=== PATIENT | male | born 1955 | race Caucasian/White ===

== ENCOUNTER 2017-11-22 01:04 | Inpatient (IN) | payer MEDICARE, OTHER ==
[2017-11-22] MEDS ORDERED: HYDROmorphone 0.5 MG/0.5 ML SYRINGE IVP STA (02:14)
--- NOTE | 2017-11-22 02:45 | ED ---
Fall HPI - General Chief Complaint: Fall Stated Complaint: Leg Injury Time Seen by Provider: 11/22/17 01:07 Source: patient Mode of arrival: EMS - History of Present Illness Initial Comments: 62-year-old male patient presents to emergency department today as a transfer from [facility] for fracture to his tibia and fibula. Patient states that earlier today he became dizzy, tripped and fell injuring the leg. Patient states that he often has dizziness related to his blood pressure medication. States he does have a history of diabetes, hypertension, and cardiac stents. Patient denies hitting his head or losing consciousness during the fall. Denies any other injuries. States that he does take Plavix for the stents. He denies any numbness or tingling to the leg at this time. He is complaining of increased pain. Patient denies any headache, neck pain, back pain , chest pain, shortness of breath, dizziness, weakness, abdominal pain, nausea, vomiting, or difficulties with bowel movements or urination. Patient does have a delong catheter in place from [facility]. - Related Data Allergies Allergy/AdvReac Type Severity Reaction Status Date / Time shellfish derived [Shellfish] Allergy Nausea & Verified 11/22/17 01:19 Vomiting IV Dye Allergy Unknown Uncoded 11/22/17 01:19 Review of Systems ROS Statement: Those systems with pertinent positive or pertinent negative responses have been documented in the HPI. ROS Other: All systems not noted in ROS Statement are negative. Past Medical History Past Medical History: Diabetes Mellitus, Hyperlipidemia, Hypertension History of Any Multi-Drug Resistant Organisms: None Reported Past Surgical History: No Surgical Hx Reported Past Psychological History: Anxiety, Depression Smoking Status: Never smoker Past Alcohol Use History: None Reported Past Drug Use History: Marijuana General Exam Limitations: physical limitation General appearance: alert, in no apparent distress, other (Social well-developed , well-nourished adult male patient in no acute distress. Vital signs upon presentation are temperature 97.9F, pulse 62, respirations 18, blood pressure 121/58, pulse ox 95% on room air.) Eye exam: Present: normal appearance, PERRL, EOMI. Absent: scleral icterus, conjunctival injection, periorbital swelling ENT exam: Present: normal exam, normal oropharynx, mucous membranes moist Respiratory exam: Present: normal lung sounds bilaterally. Absent: respiratory distress, wheezes, rales, rhonchi, stridor Cardiovascular Exam: Present: regular rate, normal rhythm, normal heart sounds. Absent: systolic murmur, diastolic murmur, rubs, gallop, clicks GI/Abdominal exam: Present: soft, normal bowel sounds. Absent: distended, tenderness, guarding, rebound, rigid Extremities exam: Present: full ROM, normal capillary refill, other (Patient has a posterior OCL splint extending from mid thigh down to his toes. Toes are pink, warm, and dry. Cap refills less than 3 seconds. Pedal pulses are 2+ and equal bilaterally. Patient is able to move his toes.). Absent: normal inspection, tenderness, pedal edema, joint swelling, calf tenderness Back exam: Present: normal inspection. Absent: vertebral tenderness Neurological exam: Present: alert, oriented X3, CN II-XII intact Psychiatric exam: Present: normal affect, normal mood Skin exam: Present: warm, dry, intact, normal color. Absent: rash Course Vital Signs 11/22/17 11/22/17 11/22/17 01:12 02:20 04:03 Temperature 97.9 F 99.0 F Pulse Rate 62 62 64 Respiratory 18 18 18 Rate Blood Pressure 121/58 147/84 117/64 O2 Sat by Pulse 95 96 97 Oximetry 11/22/17 06:30 Temperature 98.8 F Pulse Rate 75 Respiratory 18 Rate Blood Pressure 150/68 O2 Sat by Pulse 96 Oximetry Medical Decision Making - Medical Decision Making 62-year-old male patient presented to the emergency department as a transfer from [facility] for a fracture to his distal tibia and proximal fibula. Images were reviewed. I did speak to Betty Cain catalyst concentration operator [facility], Dr. Osuna agrees to admission. Patient will be made nothing by mouth. Pain management will be provided. We will obtain baseline labs and presurgical workup. Patient does have an extensive medical history so we will consult sound for medical management. - Lab Data Result diagrams: 11/22/17 04:24 11/22/17 04:24 Lab Results 11/22/17 11/22/17 11/22/17 Range/Units 04:24 04:24 04:24 WBC 12.6 H (3.8-10.6) k/uL RBC 4.41 (4.30-5.90) m/uL Hgb 12.6 L (13.0-17.5) gm/dL Hct 37.5 L (39.0-53.0) % MCV 85.2 (80.0-100.0) fL MCH 28.7 (25.0-35.0) pg MCHC 33.7 (31.0-37.0) g/dL RDW 14.1 (11.5-15.5) % Plt Count 290 (150-450) k/uL Neutrophils % 76 % Lymphocytes % 14 % Monocytes % 7 % Eosinophils % 2 % Basophils % 0 % Neutrophils # 9.6 H (1.3-7.7) k/uL Lymphocytes # 1.8 (1.0-4.8) k/uL Monocytes # 0.8 (0-1.0) k/uL Eosinophils # 0.3 (0-0.7) k/uL Basophils # 0.0 (0-0.2) k/uL PT 11.5 (9.0-12.0) sec INR 1.2 H (<1.2) APTT 24.9 (22.0-30.0) sec Sodium 137 (137-145) mmol/L Potassium 4.0 (3.5-5.1) mmol/L Chloride 102 (98-107) mmol/L Carbon Dioxide 24 (22-30) mmol/L Anion Gap 11 mmol/L BUN 25 H (9-20) mg/dL Creatinine 1.00 (0.66-1.25) mg/dL Est GFR (CKD-EPI)AfAm >90 (>60 ml/min/1.73 sqM) Est GFR (CKD-EPI)NonAf 79 (>60 ml/min/1.73 sqM) Glucose 115 H (74-99) mg/dL Calcium 8.9 (8.4-10.2) mg/dL Total Bilirubin 0.6 (0.2-1.3) mg/dL AST 23 (17-59) U/L ALT 42 (21-72) U/L Alkaline Phosphatase 54 (38-126) U/L Total Protein 6.2 L (6.3-8.2) g/dL Albumin 3.8 (3.5-5.0) g/dL Urine Color Urine Appearance (Clear) Urine pH (5.0-8.0) Ur Specific Hayes (1.001-1.035) Urine Protein (Negative) Urine Glucose (UA) (Negative) Urine Ketones (Negative) Urine Blood (Negative) Urine Nitrite (Negative) Urine Bilirubin (Negative) Urine Urobilinogen (<2.0) mg/dL Ur Leukocyte Esterase (Negative) Urine RBC (0-5) /hpf Urine WBC (0-5) /hpf Ur Squamous Epith Cells (0-4) /hpf Urine Mucus (None) /hpf 11/22/17 Range/Units 04:25 WBC (3.8-10.6) k/uL RBC (4.30-5.90) m/uL Hgb (13.0-17.5) gm/dL Hct (39.0-53.0) % MCV (80.0-100.0) fL MCH (25.0-35.0) pg MCHC (31.0-37.0) g/dL RDW (11.5-15.5) % Plt Count (150-450) k/uL Neutrophils % % Lymphocytes % % Monocytes % % Eosinophils % % Basophils % % Neutrophils # (1.3-7.7) k/uL Lymphocytes # (1.0-4.8) k/uL Monocytes # (0-1.0) k/uL Eosinophils # (0-0.7) k/uL Basophils # (0-0.2) k/uL PT (9.0-12.0) sec INR (<1.2) APTT (22.0-30.0) sec Sodium (137-145) mmol/L Potassium (3.5-5.1) mmol/L Chloride (98-107) mmol/L Carbon Dioxide (22-30) mmol/L Anion Gap mmol/L BUN (9-20) mg/dL Creatinine (0.66-1.25) mg/dL Est GFR (CKD-EPI)AfAm (>60 ml/min/1.73 sqM) Est GFR (CKD-EPI)NonAf (>60 ml/min/1.73 sqM) Glucose (74-99) mg/dL Calcium (8.4-10.2) mg/dL Total Bilirubin (0.2-1.3) mg/dL AST (17-59) U/L ALT (21-72) U/L Alkaline Phosphatase (38-126) U/L Total Protein (6.3-8.2) g/dL Albumin (3.5-5.0) g/dL Urine Color Light Yellow Urine Appearance Clear (Clear) Urine pH 5.5 (5.0-8.0) Ur Specific Hayes 1.012 (1.001-1.035) Urine Protein Trace H (Negative) Urine Glucose (UA) Negative (Negative) Urine Ketones Negative (Negative) Urine Blood Moderate H (Negative) Urine Nitrite Negative (Negative) Urine Bilirubin Negative (Negative) Urine Urobilinogen <2.0 (<2.0) mg/dL Ur Leukocyte Esterase Trace H (Negative) Urine RBC >182 H (0-5) /hpf Urine WBC 10 H (0-5) /hpf Ur Squamous Epith Cells <1 (0-4) /hpf Urine Mucus Rare H (None) /hpf Disposition Clinical Impression: Tibia/fibula fracture Disposition: ADMITTED IP TO THIS [facility] Condition: Serious Decision to Admit Reason: Admit from EC Decision Date: 11/22/17 Decision Time: 04:04
[2017-11-22] MEDS ORDERED: MORPHINE SULFATE 2 MG/ML SYRINGE IV PRN (04:01)
[2017-11-22] MEDS ORDERED: NALOXONE 0.4 MG/ML 1 ML VIAL IV PRN (04:01)
[2017-11-22] MEDS ORDERED: ONDANSETRON 4 MG/2 ML VIAL IVP PRN (04:01)
[2017-11-22 04:41] LABS: Basophils % (A) 0 %; Eosinophils # (A) 0.3 k/uL (0-0.7); Eosinophils % (A) 2 %; HCT 37.5 % (39.0-53.0); HGB 12.6 gm/dL (13.0-17.5); Lymphocytes # (A) 1.8 k/uL (1.0-4.8); Lymphocytes % (A) 14 %; MCH 28.7 pg (25.0-35.0); MCHC 33.7 g/dL (31.0-37.0); MCV 85.2 fL (80.0-100.0); Mean Platelet Volume 6.6; Monocytes # (A) 0.8 k/uL (0-1.0); Monocytes % (A) 7 %; Neutrophils # (A) 9.6 k/uL (1.3-7.7); Neutrophils % (A) 76 %; Platelet Count 290 k/uL (150-450); RBC 4.41 m/uL (4.30-5.90); RDW 14.1 % (11.5-15.5); WBC 12.6 k/uL (3.8-10.6)
[2017-11-22 04:52] LABS: Appearance,Urine Clear (Clear); Bilirubin,Urine Negative (Negative); Blood,Urine Moderate (Negative); Color,Urine Light Yellow; Glucose,Urine (UA) Negative (Negative); Ketones,Urine Negative (Negative); Leukocyte Esterase,Urine Trace (Negative); Mucus,Urine Rare /hpf; Nitrite,Urine Negative (Negative); PH, Urine 5.5 (5.0-8.0); Protein,Urine Trace (Negative); RBC,Urine >182 /hpf (0-5); Specific Gravity,Urine 1.012 (1.001-1.035); Squamous Epithelial Cell,Urine <1 /hpf (0-4); Urobilinogen,Urine <2.0 mg/dL (<2.0); WBC,Urine 10 /hpf (0-5)
[2017-11-22 04:57] LABS: INR 1.2 (<1.2); Partial Thromboplastin Time 24.9 sec (22.0-30.0); Prothrombin Time 11.5 sec (9.0-12.0)
[2017-11-22 05:01] LABS: ALT 42 U/L (21-72); AST 23 U/L (17-59); Albumin 3.8 g/dL (3.5-5.0); Alkaline Phosphatase 54 U/L (38-126); Anion Gap 11 mmol/L; Blood Urea Nitrogen 25 mg/dL (9-20); Calcium 8.9 mg/dL (8.4-10.2); Carbon Dioxide 24 mmol/L (22-30); Chloride 102 mmol/L (98-107); Glucose 115 mg/dL (74-99); Sodium 137 mmol/L (137-145); Total Bilirubin 0.6 mg/dL (0.2-1.3); Total Protein 6.2 g/dL (6.3-8.2)
[2017-11-22] MEDS: SODIUM CHLORIDE 0.9% 1,000 ML IV SCH (05:31)
[2017-11-22 07:16] LABS: Glucose,Whole Blood 128 mg/dL (75-99)
--- NOTE | 2017-11-22 08:48 | P.CONS ---
History of Present Illness - Reason for Consult Consult date: 11/22/17 diabetes management Requesting physician: Kenneth Osuna - Chief Complaint Right leg pain - History of Present Illness Patient is 62 yo CM with a history of HTN, DM 2 requiring insulin, HTN. HLD, CAD status post PCI with 3 stent, and chronic dizziness who presented as a transfer from [facility] left wrist sustaining a right tib-fib fracture. We have been asked to consult for diabetic management and preoperative clearance. Patient seen and examined at bedside. He states that he was up and walking the last evening and he did not have his cane with him got dizzy his dog within the way and he fell. He then was unable to get off the floor until his came to his his side and health. He then proceeded to the hospital secondary to inability to weight-bear on his right lower extremity and significant pain. At [facility] she underwent an extensive evaluation and they found a right tibial fibular fracture and transferred him to our facility for further care. He states that he has suffered from dizziness for the last 1 year due to his cardiac medications. He has been following with the PA from his PCPs office and medications have been adjusted. He denies any recent cough, cold, fever, or flu. He had one day of diarrhea earlier this week that has since subsided. He denies any recent chest pain, unusual shortness of breath, or palpitations. He denies a syncopal event. He has otherwise been in his normal state of health and has not required any recent medication changes. He does take insulin for his diabetes. His is his court-appointed guardian. He states this occurred after he fell down a flight of stairs 2 years ago and was slightly confused. He is well aware of his medical history Case discussed with . She states that he has been having episodes of choking when eating is getting treated for severe GERD. They've not yet completed workup for this as an outpatient. She also states that he has depression and that what sounds like anxiety. Review of Systems Pertinent positives and negatives as discussed in HPI, a complete review of systems was performed and all other systems are negative. Past Medical History Past Medical History: Coronary Artery Disease (CAD), Diabetes Mellitus, Hyperlipidemia, Hypertension Additional Past Medical History / Comment(s): Depression, history of alcoholism , hx of brain bleed History of Any Multi-Drug Resistant Organisms: None Reported Past Surgical History: No Surgical Hx Reported Additional Past Surgical History / Comment(s): Fracture repairs after a fall, with long-term care; hydrocele surgery Past Anesthesia/Blood Transfusion Reactions: No Reported Reaction Past Psychological History: Anxiety, Depression Smoking Status: Never smoker Past Alcohol Use History: None Reported Past Drug Use History: Marijuana - Past Family History Father Family Medical History: Congestive Heart Failure (CHF), Diabetes Mellitus Mother Family Medical History: Congestive Heart Failure (CHF) Sister(s) Family Medical History: Diabetes Mellitus Medications and Allergies Allergies Allergy/AdvReac Type Severity Reaction Status Date / Time shellfish derived [Shellfish] Allergy Nausea & Verified 11/22/17 01:19 Vomiting IV Dye Allergy Unknown Uncoded 11/22/17 01:19 Physical Exam Osteopathic Statement: *. No significant issues noted on an osteopathic structural exam other than those noted in the History and Physical/Consult. Vitals: Vital Signs Temp Pulse Pulse Resp BP BP Pulse Ox 11/22/17 07:37 97.1 F L 64 18 137/73 95 11/22/17 06:30 98.8 F 75 18 150/68 96 11/22/17 04:03 64 18 117/64 97 11/22/17 02:20 99.0 F 62 18 147/84 96 11/22/17 01:12 97.9 F 62 18 121/58 95 Intake and Output 11/21/17 11/22/17 11/22/17 22:59 06:59 14:59 Output Total 1150 Balance -1150 Output: Urine 1150 Other: Weight 94.801 kg General: non toxic, no distress, appears at stated age, normal weight Derm: no unusual rashes/lesions no unusual ecchymoses, warm, dry, right leg in ACEI wrap Head: atraumatic, normocephalic, symmetric Eyes: EOMI, no lid lag, anicteric sclera, pupils equal round reactive to light ENT: Nose and ears atraumatic, no thrush, no pharyngeal erythema Neck: No thyromegaly, no cervical lymphadenopathy, trachea midline, supple Mouth: no lip lesion, mucus membranes moist Cardiovascular: S1S2 reg, no murmur, positive posterior tibial pulse bilateral, no edema, capillary refill less than 2 seconds Lungs: CTA bilateral, no rhonchi, no rales , no accessory muscle use Abdominal: soft, nontender to palpation, no guarding, no appreciable organomegaly, normal bowel sounds Ext: no gross muscle atrophy, muscle strength 5 out of 5 in upper extremities grossly, no contractures, Neuro: CN II-XI grossly intact, light touch intact all 4 extremities, difficulty with finger to nose on left, Psych: Alert, oriented, anxious Results CBC & Chem 7: 11/22/17 04:24 11/22/17 04:24 Labs: Abnormal Lab Results - Last 24 Hours (Table) 11/22/17 11/22/17 11/22/17 Range/Units 04:24 04:24 04:24 WBC 12.6 H (3.8-10.6) k/uL Hgb 12.6 L (13.0-17.5) gm/dL Hct 37.5 L (39.0-53.0) % Neutrophils # 9.6 H (1.3-7.7) k/uL INR 1.2 H (<1.2) BUN 25 H (9-20) mg/dL Glucose 115 H (74-99) mg/dL POC Glucose (mg/dL) (75-99) mg/dL Total Protein 6.2 L (6.3-8.2) g/dL Urine Protein (Negative) Urine Blood (Negative) Ur Leukocyte Esterase (Negative) Urine RBC (0-5) /hpf Urine WBC (0-5) /hpf Urine Mucus (None) /hpf 11/22/17 11/22/17 Range/Units 04:25 07:12 WBC (3.8-10.6) k/uL Hgb (13.0-17.5) gm/dL Hct (39.0-53.0) % Neutrophils # (1.3-7.7) k/uL INR (<1.2) BUN (9-20) mg/dL Glucose (74-99) mg/dL POC Glucose (mg/dL) 128 H (75-99) mg/dL Total Protein (6.3-8.2) g/dL Urine Protein Trace H (Negative) Urine Blood Moderate H (Negative) Ur Leukocyte Esterase Trace H (Negative) Urine RBC >182 H (0-5) /hpf Urine WBC 10 H (0-5) /hpf Urine Mucus Rare H (None) /hpf Comments: EKG is reviewed by myself revealed normal sinus rhythm at a rate of 66, normal access, MN 154, QRS 102, QTC [address]-T wave changes Assessment and Plan Assessment: Right leg fracture -Management as per orthopedics -Pain control -DVT prophylaxis per orthopedic surgery -PT/OT eval -Nonweightbearing at this point in time Diabetes mellitus type 2, insulin requiring -Resume home Lantus and NovoLog dosing -Check hemoglobin A1c -Follow blood sugars Hypertension -Resume home medications -Follow blood pressures -Nursing will into her home med list today GERD with recent difficulty swallowing -Changed to modify diet -PT consultation -PPI Dyslipidemia -Not chronically on any medications will not start this point in time Coronary artery disease status post PCI 3 - hold aspirin and Plavix pending orthopedic evaluation -Continue outpatient follow-up -Continue with JOSE C inhibitor and beta maru Functional debility -Fall precautions -Likely will need rehab on discharge Court-appointed guardian: breath DVT prophylaxis: per ortho Discussed with: Patient, nursing, over phone Anticipated discharge: undetermined Anticipated discharge place: SNF A total of [65] minutes was spent on the care of this complex patient more than 50% of the time was spent in counseling and care coordination.
[2017-11-22] MEDS: HYDROcodone/APAP 7.5-325MG 1 EACH TAB PO PRN ×3 (09:52→19:52)
[2017-11-22] MEDS: PANTOPRAZOLE 40 MG TABLET PO SCH (10:21)
--- NOTE | 2017-11-22 12:17 | P.HPOR ---
History of Present Illness H&P Date: 11/22/17 This is a 62-year-old male who is admitted for right tibia and fibula fracture. Patient states that yesterday he got up from sitting and felt dizzy and fell. Patient states that he did not lose consciousness or hit his head. Patient states that dizziness is common for him when standing. Patient was transferred from [facility] to [facility] emergency room for further evaluation and was admitted as an inpatient. Patient's past medical history significant for diabetes and hypertension. Patient denies any fever/chills, numbness, weakness, tingling, shortness of breath or chest pain. Review of Systems See HPI. Past Medical History Past Medical History: Diabetes Mellitus, Hyperlipidemia, Hypertension History of Any Multi-Drug Resistant Organisms: None Reported Past Surgical History: No Surgical Hx Reported Additional Past Surgical History / Comment(s): Fracture repairs after a fall, with long-term care; hydrocele surgery Past Anesthesia/Blood Transfusion Reactions: No Reported Reaction Past Psychological History: Anxiety, Depression Smoking Status: Never smoker Past Alcohol Use History: None Reported Past Drug Use History: Marijuana - Past Family History Father Family Medical History: Congestive Heart Failure (CHF), Diabetes Mellitus Mother Family Medical History: Congestive Heart Failure (CHF) Sister(s) Family Medical History: Diabetes Mellitus Medications and Allergies Home Medications Medication Instructions Recorded Confirmed Type Aspirin EC [Ecotrin Low Dose] 81 mg PO DAILY 11/22/17 11/22/17 History Atorvastatin [Lipitor] 20 mg PO HS 11/22/17 11/22/17 History Clopidogrel [Plavix] 75 mg PO DAILY 11/22/17 11/22/17 History DULoxetine HCL [Cymbalta] 60 mg PO DAILY 11/22/17 11/22/17 History Gabapentin [Neurontin] 300 mg PO BID@0800,1200 11/22/17 11/22/17 History Gabapentin [Neurontin] 600 mg PO HS 11/22/17 11/22/17 History Hydrochlorothiazide [Hydrodiuril] 25 mg PO DAILY 11/22/17 11/22/17 History Insulin Aspart [NovoLOG 6 unit SQ ACHS 11/22/17 11/22/17 History (formulary)] Insulin Glargine [Lantus] 20 - 25 unit SQ HS 11/22/17 11/22/17 History LORazepam [Ativan] 0.5 mg PO HS 11/22/17 11/22/17 History Lisinopril [Zestril] 20 mg PO DAILY 11/22/17 11/22/17 History Loratadine [Claritin] 10 mg PO DAILY 11/22/17 11/22/17 History Metoprolol Succinate [Toprol Xl] 50 mg PO DAILY 11/22/17 11/22/17 History Ranitidine HCl [Zantac] 150 mg PO BID 11/22/17 11/22/17 History amLODIPine [Norvasc] 10 mg PO DAILY 11/22/17 11/22/17 History metFORMIN HCL [metFORMIN HCL ER] 1,000 mg PO [id number] 11/22/17 11/22/17 History Allergies Allergy/AdvReac Type Severity Reaction Status Date / Time shellfish derived [Shellfish] Allergy Nausea & Verified 11/22/17 11:30 Vomiting IV Dye Allergy Unknown Uncoded 11/22/17 01:19 Physical Examination On exam patient is alert and oriented 3. Patient is lying in bed comfortably in no acute distress. Head is normocephalic and atraumatic. Exams of the neck , bilateral upper extremities and left lower extremity are within normal limits. The right lower extremity with long leg splint intact. Skin is intact. Patient has full range of motion of the toes of the right foot. Sensation intact. Capillary refill is normal at less than 2 seconds. Dorsalis pedis pulses 2+. Neurovascular status and circulatory status are intact. Results X-rays of the right ankle show a displaced spiral fracture of the tibia. X-rays of the right knee show a minimally displaced fracture of the proximal fibula. - Labs Labs: Abnormal Lab Results - Last 24 Hours (Table) 11/22/17 11/22/17 11/22/17 Range/Units 04:24 04:24 04:24 WBC 12.6 H (3.8-10.6) k/uL Hgb 12.6 L (13.0-17.5) gm/dL Hct 37.5 L (39.0-53.0) % Neutrophils # 9.6 H (1.3-7.7) k/uL INR 1.2 H (<1.2) BUN 25 H (9-20) mg/dL Glucose 115 H (74-99) mg/dL POC Glucose (mg/dL) (75-99) mg/dL Total Protein 6.2 L (6.3-8.2) g/dL Urine Protein (Negative) Urine Blood (Negative) Ur Leukocyte Esterase (Negative) Urine RBC (0-5) /hpf Urine WBC (0-5) /hpf Urine Mucus (None) /hpf 11/22/17 11/22/17 Range/Units 04:25 07:12 WBC (3.8-10.6) k/uL Hgb (13.0-17.5) gm/dL Hct (39.0-53.0) % Neutrophils # (1.3-7.7) k/uL INR (<1.2) BUN (9-20) mg/dL Glucose (74-99) mg/dL POC Glucose (mg/dL) 128 H (75-99) mg/dL Total Protein (6.3-8.2) g/dL Urine Protein Trace H (Negative) Urine Blood Moderate H (Negative) Ur Leukocyte Esterase Trace H (Negative) Urine RBC >182 H (0-5) /hpf Urine WBC 10 H (0-5) /hpf Urine Mucus Rare H (None) /hpf H & H 11/22/17 Range/Units 04:24 Hgb 12.6 L (13.0-17.5) gm/dL Hct 37.5 L (39.0-53.0) % Coagulation 11/22/17 Range/Units 04:24 INR 1.2 H (<1.2) Result Diagrams: 11/22/17 04:24 11/22/17 04:24 Assessment and Plan (1) Closed fracture of tibia and fibula Current Visit: Yes Status: Acute Code(s): S82.209A - UNSP FRACTURE OF SHAFT OF UNSP TIBIA, INIT FOR CLOS FX; S82.409A - UNSP FRACTURE OF SHAFT OF UNSP FIBULA, INIT FOR CLOS FX SNOMED Code(s): 213996076 (2) Fall Current Visit: Yes Status: Acute Code(s): W19.XXXA - UNSPECIFIED FALL, INITIAL ENCOUNTER SNOMED Code(s): 7731822 (3) Tibia/fibula fracture Current Visit: Yes Status: Acute Code(s): S82.209A - UNSP FRACTURE OF SHAFT OF UNSP TIBIA, INIT FOR CLOS FX; S82.409A - UNSP FRACTURE OF SHAFT OF UNSP FIBULA, INIT FOR CLOS FX SNOMED Code(s): 210814130 Plan: 1. Continue long leg splint, rest, ice and elevation. 2. Hold Plavix. 3. Appreciate input from medicine and cardiology. 4. NPO after midnight. 5. Intramedullary nail of tibia planned for 11/23/2017 if cleared medically. Consent pending.
[2017-11-22 12:56] LABS: Glucose,Whole Blood 153 mg/dL (75-99)
[2017-11-22] MEDS: INSULIN ASPART 100 UNIT/ML 1 ML 10 ML VIAL SQ SCH ×5 (13:01→21:13)
[2017-11-22] MEDS: HYDROmorphone 0.5 MG/0.5 ML SYRINGE IVP PRN ×2 (13:02→21:15)
[2017-11-22 15:30] LABS: Appearance,Urine Clear (Clear); Bilirubin,Urine Negative (Negative); Blood,Urine Trace (Negative); Color,Urine Light Yellow; Glucose,Urine (UA) Negative (Negative); Ketones,Urine Negative (Negative); Leukocyte Esterase,Urine Moderate (Negative); Mucus,Urine Rare /hpf; Nitrite,Urine Negative (Negative); Protein,Urine Negative (Negative); RBC,Urine 3 /hpf (0-5); Specific Gravity,Urine 1.011 (1.001-1.035); Squamous Epithelial Cell,Urine <1 /hpf (0-4); Urobilinogen,Urine <2.0 mg/dL (<2.0); WBC,Urine 3 /hpf (0-5)
[2017-11-22 17:38] LABS: Glucose,Whole Blood 118 mg/dL (75-99)
--- NOTE | 2017-11-22 19:52 | P.CRDCN ---
History of Present Illness Consult date: 11/22/17 Chief complaint: Right leg discomfort History of present illness: This is a pleasant 62-year-old gentleman from [facility] with a past medical history significant for coronary artery disease and prior coronary artery stenting of multiple vessels with unknown details at this point but according to the patient the last the stent was performed more than 3 years ago , he doesn't follow with a telemetry nurse out of the area, diabetes, hypertension , and dyslipidemia, was transferred from [facility] into [facility] because of right tibia and fibula. Fracture. The patient was in his usual state of health where he was trying to stand up from sitting and he suddenly felt dizzy and fell and fractured his right tibia and fibula. He did not lose his consciousness. He does not recall having any chest pain or chest discomfort. He stated that he has been feeling dizzy for the last year and he doctor his doctor regarding adjusting his blood pressure medications. The EKG showed sinus rhythm without any ischemic changes. The patient continues to be hemodynamically stable and continues to be asymptomatic from the cardiac vascular standpoint overview. Since the last the stent was performed more than 3 years ago I am going to DC the Plavix. The patient can proceed with the surgery. We will continue monitor the blood pressure and adjust her medications if the blood pressure is on the low side which could be causing the patient to be dizzy and lightheaded. Past Medical History Past Medical History: Diabetes Mellitus, Hyperlipidemia, Hypertension Additional Past Medical History / Comment(s): Depression, history of alcoholism , hx of brain bleed History of Any Multi-Drug Resistant Organisms: None Reported Past Surgical History: No Surgical Hx Reported Additional Past Surgical History / Comment(s): Fracture repairs after a fall, with long-term care; hydrocele surgery Past Anesthesia/Blood Transfusion Reactions: No Reported Reaction Past Psychological History: Anxiety, Depression Smoking Status: Never smoker Past Alcohol Use History: None Reported Past Drug Use History: Marijuana - Past Family History Father Family Medical History: Congestive Heart Failure (CHF), Diabetes Mellitus Mother Family Medical History: Congestive Heart Failure (CHF) Sister(s) Family Medical History: Diabetes Mellitus Medications and Allergies Home Medications Medication Instructions Recorded Confirmed Type Aspirin EC [Ecotrin Low Dose] 81 mg PO DAILY 11/22/17 11/22/17 History Atorvastatin [Lipitor] 20 mg PO HS 11/22/17 11/22/17 History Clopidogrel [Plavix] 75 mg PO DAILY 11/22/17 11/22/17 History DULoxetine HCL [Cymbalta] 60 mg PO DAILY 11/22/17 11/22/17 History Gabapentin [Neurontin] 300 mg PO BID@0800,1200 11/22/17 11/22/17 History Gabapentin [Neurontin] 600 mg PO HS 11/22/17 11/22/17 History Hydrochlorothiazide [Hydrodiuril] 25 mg PO DAILY 11/22/17 11/22/17 History Insulin Aspart [NovoLOG 6 unit SQ [facility] 11/22/17 11/22/17 History (formulary)] Insulin Glargine [Lantus] 20 - 25 unit SQ HS 11/22/17 11/22/17 History LORazepam [Ativan] 0.5 mg PO HS 11/22/17 11/22/17 History Lisinopril [Zestril] 20 mg PO DAILY 11/22/17 11/22/17 History Loratadine [Claritin] 10 mg PO DAILY 11/22/17 11/22/17 History Metoprolol Succinate [Toprol Xl] 50 mg PO DAILY 11/22/17 11/22/17 History Ranitidine HCl [Zantac] 150 mg PO BID 11/22/17 11/22/17 History amLODIPine [Norvasc] 10 mg PO DAILY 11/22/17 11/22/17 History metFORMIN HCL [metFORMIN HCL ER] 1,000 mg PO AC-BRKFST 11/22/17 11/22/17 History Allergies Allergy/AdvReac Type Severity Reaction Status Date / Time shellfish derived [Shellfish] Allergy Nausea & Verified 11/22/17 11:30 Vomiting IV Dye Allergy Unknown Uncoded 11/22/17 01:19 Physical Exam Vitals: Vital Signs Temp Pulse Pulse Resp BP BP BP 11/22/17 15:10 98.3 F 73 18 134/74 11/22/17 07:37 97.1 F L 64 18 137/73 11/22/17 06:30 98.8 F 75 18 150/68 11/22/17 04:03 64 18 117/64 11/22/17 02:20 99.0 F 62 18 147/84 11/22/17 01:12 97.9 F 62 18 121/58 Pulse Ox 11/22/17 15:10 93 L 11/22/17 07:37 95 11/22/17 06:30 96 11/22/17 04:03 97 11/22/17 02:20 96 11/22/17 01:12 95 Intake and Output 11/22/17 11/22/17 11/22/17 06:59 14:59 22:59 Intake Total 240 Output Total 1150 1000 225 Balance -1150 -760 -225 Intake: Oral 240 Output: Urine 1150 1000 225 Other: Voiding Method Indwelling Catheter Indwelling Catheter # Bowel Movements 0 0 Weight 94.801 kg - Constitutional General appearance: no acute distress - Respiratory Respiratory: bilateral: CTA - Cardiovascular Rhythm: regular Heart sounds: normal: S1, S2 Results 11/22/17 04:24 11/22/17 04:24 Cardiac Enzymes 11/22/17 Range/Units 04:24 AST 23 (17-59) U/L Coagulation 11/22/17 Range/Units 04:24 PT 11.5 (9.0-12.0) sec APTT 24.9 (22.0-30.0) sec CBC 11/22/17 Range/Units 04:24 WBC 12.6 H (3.8-10.6) k/uL RBC 4.41 (4.30-5.90) m/uL Hgb 12.6 L (13.0-17.5) gm/dL Hct 37.5 L (39.0-53.0) % Plt Count 290 (150-450) k/uL Comprehensive Metabolic Panel 11/22/17 Range/Units 04:24 Sodium 137 (137-145) mmol/L Potassium 4.0 (3.5-5.1) mmol/L Chloride 102 (98-107) mmol/L Carbon Dioxide 24 (22-30) mmol/L BUN 25 H (9-20) mg/dL Creatinine 1.00 (0.66-1.25) mg/dL Glucose 115 H (74-99) mg/dL Calcium 8.9 (8.4-10.2) mg/dL AST 23 (17-59) U/L ALT 42 (21-72) U/L Alkaline Phosphatase 54 (38-126) U/L Total Protein 6.2 L (6.3-8.2) g/dL Albumin 3.8 (3.5-5.0) g/dL Current Medications Generic Name Dose Route Start Last Admin Trade Name Freq PRN Reason Stop Dose Admin Hydrocodone Bitart/Acetaminophen 1 each 11/22/17 08:52 11/22/17 15:34 [place] 7.5-325 PO 1 each Q4HR PRN Administration MODERATE Pain Amlodipine Besylate 10 mg 11/23/17 09:00 Norvasc PO DAILY [facility] Atorvastatin Calcium 20 mg 11/22/17 21:00 Lipitor PO HS [facility] Duloxetine HCl 60 mg 11/23/17 09:00 Cymbalta PO DAILY [facility] Gabapentin 300 mg 11/23/17 08:00 Neurontin PO BID@0800,1200 [facility] Gabapentin 600 mg 11/22/17 21:00 Neurontin PO HS [facility] Hydrochlorothiazide 25 mg 11/23/17 09:00 Hydrodiuril PO DAILY [facility] Hydromorphone HCl 0.5 mg 11/22/17 08:48 11/22/17 13:02 Dilaudid IVP 0.5 mg Q3HR PRN Administration SEVERE Pain Sodium Chloride 1,000 mls @ 50 mls/hr 11/22/17 04:15 11/22/17 05:31 Saline 0.9% IV 50 mls/hr .Q20H [facility] Administration Insulin Aspart 0 unit 11/22/17 12:30 11/22/17 17:44 Novolog SQ Not Given ACHS [facility] Protocol Insulin Aspart 6 unit 11/22/17 12:30 11/22/17 18:02 Novolog SQ Not Given AC-TID [facility] Insulin Detemir 10 unit 11/22/17 21:00 Levemir SQ HS [facility] Lisinopril 20 mg 11/23/17 09:00 Zestril PO DAILY [facility] Loratadine 10 mg 11/23/17 09:00 Claritin PO DAILY [facility] Lorazepam 0.5 mg 11/22/17 21:00 Ativan PO HS [facility] Metoprolol Succinate 50 mg 11/23/17 09:00 Toprol Xl PO DAILY [facility] Naloxone HCl 0.2 mg 11/22/17 04:01 Narcan IV Q2M PRN Opioid Reversal Ondansetron HCl 4 mg 11/22/17 04:01 Zofran IVP Q8HR PRN Nausea And Vomiting Pantoprazole Sodium 40 mg 11/22/17 09:00 11/22/17 10:21 Protonix PO 40 mg AC-BRKFST ELLA Administration Intake and Output 11/22/17 11/22/17 11/22/17 06:59 14:59 22:59 Intake Total 240 Output Total 1150 1000 225 Balance -1150 -760 -225 Intake: Oral 240 Output: Urine 1150 1000 225 Other: Voiding Method Indwelling Catheter Indwelling Catheter # Bowel Movements 0 0 Weight 94.801 kg 11/22/17 04:24 11/22/17 04:24 Assessment and Plan Assessment: Assessment #1 status post fall and right TB/P. Fracture #2 coronary artery disease and status post multivessel coronary artery angioplasty #3 multiple risk factors including diabetes, hypertension, dyslipidemia Plan #1 since the last the stent was performed more than a year ago I am going to DC the Plavix #2 obtain an echocardiogram was Doppler #3 from the cardiovascular standpoint overview, the patient Proceed with the surgery. #4 monitor the blood pressure and adjust her medication if the pressure is on the low side #5 follow-up with the patient. Thank you for allowing us participate in his care
[2017-11-22 20:57] LABS: Glucose,Whole Blood 135 mg/dL (75-99)
[2017-11-22] MEDS: GABAPENTIN 300 MG CAP PO SCH (21:12)
[2017-11-22] MEDS: ATORVASTATIN 20 MG TAB PO SCH (21:12)
[2017-11-22] MEDS: LORazepam 0.5 MG TAB PO SCH (21:13)
[2017-11-22] MEDS: INSULIN DETEMIR 100 UNIT/ML 10 ML VIAL SQ SCH (21:13)
[2017-11-23] MEDS: HYDROcodone/APAP 7.5-325MG 1 EACH TAB PO PRN ×4 (01:01→20:43)
[2017-11-23] MEDS: SODIUM CHLORIDE 0.9% 1,000 ML IV SCH ×3 (04:45→20:25)
[2017-11-23] MEDS: HYDROmorphone 0.5 MG/0.5 ML SYRINGE IVP PRN ×4 (04:59→22:13)
[2017-11-23 07:05] LABS: Glucose,Whole Blood 122 mg/dL (75-99)
[2017-11-23 07:43] LABS: HCT 34.1 % (39.0-53.0); HGB 11.2 gm/dL (13.0-17.5); MCH 28.4 pg (25.0-35.0); MCHC 32.8 g/dL (31.0-37.0); MCV 86.5 fL (80.0-100.0); Mean Platelet Volume 6.7; Platelet Count 243 k/uL (150-450); RBC 3.94 m/uL (4.30-5.90); RDW 14.3 % (11.5-15.5)
[2017-11-23] MEDS: INSULIN ASPART 100 UNIT/ML 1 ML 10 ML VIAL SQ SCH ×7 (08:00→20:26)
[2017-11-23] MEDS: HYDROCHLOROTHIAZIDE 25 MG TAB PO SCH (08:01)
[2017-11-23] MEDS: PANTOPRAZOLE 40 MG TABLET PO SCH (08:01)
[2017-11-23] MEDS: GABAPENTIN 300 MG CAP PO SCH ×3 (08:01→20:44)
[2017-11-23] MEDS: DULoxetine HCL 60 MG CAPSULE.DR PO SCH (08:01)
[2017-11-23] MEDS: LORATADINE 10 MG TAB PO SCH (08:02)
[2017-11-23 08:06] LABS: Calcium 9.2 mg/dL (8.4-10.2); Potassium 4.6 mmol/L (3.5-5.1)
[2017-11-23] MEDS: METOPROLOL SUCCINATE (ER) 50 MG TAB.ER.24H PO SCH (08:09)
[2017-11-23] MEDS: amLODIPine 10 MG TAB PO SCH (08:22)
[2017-11-23] MEDS: LISINOPRIL 20 MG TAB PO SCH (08:22)
--- NOTE | 2017-11-23 09:24 | XR ---
EXAMINATION TYPE: XR chest 1V DATE OF EXAM: 11/23/2017 COMPARISON: NONE HISTORY: Preop surgery TECHNIQUE: Single frontal view of the chest is obtained. FINDINGS: There is no focal air space opacity, pleural effusion, or pneumothorax seen. The cardiac silhouette size is within normal limits. The osseous structures are intact. Hypertrophic change of the AC joints. IMPRESSION: No acute process.
[2017-11-23 11:13] LABS: Glucose,Whole Blood 115 mg/dL (75-99)
[2017-11-23] MEDS ORDERED: IV FLUID CONTINUATION 1,000 ML IV ONE (11:57)
[2017-11-23] MEDS ORDERED: LIDOCAINE 1% INJ 10MG/ML (20 ML MDV) ONE (12:26)
[2017-11-23] MEDS ORDERED: PROPOFOL 10 MG/ML 20 ML VIAL IV ONE (12:26)
[2017-11-23] MEDS ORDERED: PHENYLEPHRINE-0.9% NACL SYG 1 MG/10 ML SYRINGE ONE (12:26)
[2017-11-23] MEDS ORDERED: fentaNYL (PF) 50 MCG/ML 2 ML AMP ONE (12:26)
[2017-11-23] MEDS ORDERED: SUCCINYLCHOLINE CHLORIDE 100 MG/5 ML SYR IV ONE (12:26)
[2017-11-23] MEDS ORDERED: MIDAZOLAM 2 MG/2 ML VIAL ONE (12:26)
[2017-11-23] MEDS ORDERED: LACTATED RINGERS 1,000 ML IV ONE ×2 (12:45→14:02)
[2017-11-23] MEDS ORDERED: SODIUM CHLORIDE 0.9% 50 ML with ceFAZolin 2,000 MG IV ONE ×2 (12:45)
[2017-11-23] MEDS ORDERED: ceFAZolin 1,000 MG in SODIUM CHLORIDE 0.9% 1,000 ML IRRIGATION ONE (13:09)
[2017-11-23] MEDS ORDERED: MAGNESIUM HYDROXIDE 2,400 MG/10 ML CUP PO PRN (14:34)
[2017-11-23] MEDS ORDERED: ONDANSETRON 4 MG/2 ML VIAL IVP PRN (14:34)
[2017-11-23] MEDS ORDERED: hydrOXYzine PAMOATE 25 MG CAP PO PRN (14:34)
--- NOTE | 2017-11-23 14:35 | P.OP ---
Date of Procedure: 11/23/17 Preoperative Diagnosis: Closed fracture right distal third tibia and proximal fibula Postoperative Diagnosis: Closed fracture right distal third tibia and fibula Procedure(s) Performed: Closed reduction and intramedullary rodding of the right distal third tibia fracture Implants: [employer] TriGen tibial nail 10 mm x 34 cm Anesthesia: ADOLPH Surgeon: Kenneth Osuna Credit Officer #1: Betty Ennis Estimated Blood Loss (ml): 25 Pathology: none sent Condition: stable Disposition: PACU Indications for Procedure: This is a 62-year-old gentleman that became dizzy and fell over and sustained a fracture of his distal third tibia and proximal fibula. Patient was then admitted to the hospital and after discussing the surgical and nonsurgical treatment options with him and his family at length, I recommended a close reduction and intramedullary rodding of the right tibia. Informed consent was obtained. Operative Findings: The operative findings are consistent with a closed fracture of the distal third tibia and proximal third fibula. Description of Procedure: The patient was seen in the preoperative area. The consent was reviewed. He operative site was marked with a skin marker. Patient was then brought to the operating room and given 2 g of Ancef intravenously. A general anesthetic was administered by the anesthesia department. Tourniquet was placed on the right upper thigh, and the right location was prepped and draped in usual sterile fashion. [place] timeout was performed which confirmed the patient's name, surgical site, ALLERGIES, and consent. Procedure began by making a midline incision over the knee with a skin subcu tissue sharply incised over the patellar tendon. The medial border patellar tendon was then identified and the patellar tendon was then retracted laterally. An awl was used to make the starting point for the autumn and this was confirmed with fluoroscopy. A ball-tipped guidewire was then inserted through the awl and past the fracture site while the fracture was held reduced manually and with [id number] bone clamps. Placement of the guidewire was confirmed with fluoroscopy. Sequential reaming was then performed to 11 a half millimeters. The guidewire was then measured for the appropriate length nail. The nail was inserted over the guidewire while the fracture was held reduced. The guidewire was then removed. 2 screws were then placed proximally through the drill guide. 2 screws then placed distally using freehand technique. After all the screws been placed, final fluoroscopic x-rays confirmed reduction of the fracture and placement of the hardware. Wounds were irrigated the patellar tendon was then closed with 0 Vicryl. Subcu tissues closed with 2-0 Vicryl, followed by arabella for the skin. Sterile dressing was applied and a well-padded and molded posterior splint was placed. She was then transported recovery room stable condition. The optical assistant YO Sr was required due the complexity of surgery the need for skilled acute care assistant.
--- NOTE | 2017-11-23 14:38 | XR ---
EXAMINATION TYPE: XR tibia fibula RT DATE OF EXAM: 11/23/2017 COMPARISON: NONE HISTORY: Postsurgical TECHNIQUE: 4 images submitted FINDINGS: Postsurgical change appears in near anatomic alignment. IMPRESSION: Postoperative change
[2017-11-23 14:52] LABS: Glucose,Whole Blood 111 mg/dL (75-99)
--- NOTE | 2017-11-23 15:33 | FL ---
EXAMINATION TYPE: FL guidance operating room DATE OF EXAM: 11/23/2017 HISTORY: Flouroscopy time 2 minutes and 9 seconds of fluoroscopy provided. IMPRESSION: 1. Fluoroscopy time.
[2017-11-23 17:35] LABS: Glucose,Whole Blood 141 mg/dL (75-99)
[2017-11-23 18:09] LABS: Basophils % (A) 0 %; Eosinophils # (A) 0.1 k/uL (0-0.7); Eosinophils % (A) 1 %; HCT 33.8 % (39.0-53.0); HGB 11.1 gm/dL (13.0-17.5); Lymphocytes # (A) 1.3 k/uL (1.0-4.8); Lymphocytes % (A) 10 %; MCH 28.6 pg (25.0-35.0); MCHC 32.9 g/dL (31.0-37.0); Mean Platelet Volume 6.5; Monocytes # (A) 0.8 k/uL (0-1.0); Monocytes % (A) 6 %; Neutrophils # (A) 10.1 k/uL (1.3-7.7); Neutrophils % (A) 81 %; Platelet Count 307 k/uL (150-450); RBC 3.89 m/uL (4.30-5.90); RDW 14.5 % (11.5-15.5); WBC 12.5 k/uL (3.8-10.6)
--- NOTE | 2017-11-23 18:30 | P.PN ---
Subjective Progress Note Date: 11/23/17 The patient seen in his room postop is doing well report some pain of the right lower extremity, managed currently with [place] and when necessary morphine for breakthrough pain. No complaints of chest pain shortness of breath or confusion postop. Objective - Vital Signs Vital signs: Vital Signs Temp 97.0 F L 11/23/17 15:40 Pulse 78 11/23/17 17:25 Resp 16 11/23/17 15:40 BP 127/76 11/23/17 17:25 Pulse Ox 93 L 11/23/17 15:40 Intake & Output 11/22/17 11/23/17 11/23/17 18:59 06:59 18:59 Intake Total 240 1701 Output Total 1225 1175 225 Balance -985 -1175 1476 Intake: IV 1701 Oral 240 Output: Urine 1225 1175 200 Estimated Blood Loss 25 Other: Voiding Method Indwelling Catheter Indwelling Catheter Indwelling Catheter # Voids 1 # Bowel Movements 0 - Exam Constitutional: No acute distress, conversant, pleasant Eyes: Anicteric sclerae, moist conjunctiva, no lid-lag, PERRLA ENMT: NC/AT,Oropharynx clear, no erythema, exudates Neck:Supple, FROM, no masses, or JVD, No carotid bruits; No thyromegaly Lungs: Clear to auscultation, Clear to percussion, Normal respiratory effort, no accessory muscle use Cardiovascular: Heart regular in rate and rhythm, No murmurs, gallops, or rubs no peripheral edema Abdominal: Soft Nontender, nom distended, no guarding, no rebound or rigidity, Normoactive bowel sounds No hepatomegaly, No splenomegaly, No palpable mass No abdominal wall hernia noted Skin: Normal temperature, tone, texture, turgor, No induration No subcutaneous nodules, No rash, lesions, No ulcers Extremities: Right lower extremity dressed, able to wiggle toes, appears pink indicating no compromise of blood flow Psychiatric: Alert and oriented to person, place and time, Appropriate affect Intact judgement Neuro: Muscles Strength 5/5 in all 4 extremities, Sensation to light touch grossly present throughout, Cranial nerves II-XII grossly intact. No focal sensory deficits - Labs CBC & Chem 7: 11/23/17 16:52 11/23/17 07:02 Labs: Abnormal Lab Results - Last 24 Hours (Table) 11/22/17 11/23/17 11/23/17 Range/Units 20:55 07:02 07:02 WBC (3.8-10.6) k/uL RBC 3.94 L (4.30-5.90) m/uL Hgb 11.2 L (13.0-17.5) gm/dL Hct 34.1 L (39.0-53.0) % Neutrophils # (1.3-7.7) k/uL BUN 22 H (9-20) mg/dL POC Glucose (mg/dL) 135 H (75-99) mg/dL 11/23/17 11/23/17 11/23/17 Range/Units 07:03 11:11 14:51 WBC (3.8-10.6) k/uL RBC (4.30-5.90) m/uL Hgb (13.0-17.5) gm/dL Hct (39.0-53.0) % Neutrophils # (1.3-7.7) k/uL BUN (9-20) mg/dL POC Glucose (mg/dL) 122 H 115 H 111 H (75-99) mg/dL 11/23/17 11/23/17 Range/Units 16:41 16:52 WBC 12.5 H (3.8-10.6) k/uL RBC 3.89 L (4.30-5.90) m/uL Hgb 11.1 L (13.0-17.5) gm/dL Hct 33.8 L (39.0-53.0) % Neutrophils # 10.1 H (1.3-7.7) k/uL BUN (9-20) mg/dL POC Glucose (mg/dL) 141 H (75-99) mg/dL Microbiology - Last 24 Hours (Table) 11/22/17 15:08 Urine Culture - Preliminary Urine,Catheterized Assessment and Plan Plan: Right leg fracture -Management as per orthopedics postop day #0 status post Closed reduction and intramedullary rodding of the right distal third tibia fracture -Pain control -DVT prophylaxis per orthopedic surgery -PT/OT eval -Nonweightbearing at this point in time Diabetes mellitus type 2, insulin requiring -Resume home Lantus and NovoLog dosing -Check hemoglobin A1c -Follow blood sugars Hypertension -Resume home medications -Follow blood pressures -Nursing will into her home med list today GERD with recent difficulty swallowing -Changed to modify diet -PT consultation -PPI Dyslipidemia -Not chronically on any medications will not start this point in time Coronary artery disease status post PCI 3 - hold aspirin and Plavix pending orthopedic evaluation -Continue outpatient follow-up -Continue with JOSE C inhibitor and beta maru Functional debility -Fall precautions -Likely will need rehab on discharge Disposition * We'll plan to remove [place] catheter tomorrow physical therapy with possible discharge
--- NOTE | 2017-11-23 18:47 | ECHOF ---
Referral Reason:cad MEASUREMENTS -------- HEIGHT: 175.3 cm WEIGHT: 93.0 kg BP: 99/60 IVSd: 1.0 cm (0.6 - 1.1) LVIDd: 3.5 cm (3.9 - 5.3) LVPWd: 1.2 cm (0.6 - 1.1) IVSs: 1.2 cm LVIDs: 1.8 cm LVPWs: 1.6 cm Ao Diam: 3.3 cm (2.0 - 3.7) AV Cusp: 2.0 cm (1.5 - 2.6) LA Diam: 3.3 cm (2.7 - 3.8) MV EXCURSION: 21.757 mm (> 18.000) MV EF SLOPE: 98 mm/s (70 - 150) EPSS: 0.4 cm MV E Mt: 0.54 m/s MV DecT: 249 ms MV A Mt: 0.65 m/s MV E/A Ratio: 0.83 FINDINGS -------- Sinus rhythm. This was a technically good study. The left ventricular size is normal. Left ventricular wall thickness is normal. Overall left vent ricular systolic function is normal with, an EF between 55 - 60 %. The right ventricle is normal in size. The left atrium is normal in size. The right atrium is normal in size. The aortic valve is trileaflet, and appears structurally normal. No aortic stenosis or regurgitation. Normal appearing mitral valve. Mild tricuspid regurgitation present. The right ventricular systolic pressure, as measured by Doppl er, is {RVSP}. Pulmonic valve appears structurally normal. The aortic root size is normal. The pericardium is normal. CONCLUSIONS -------- 1. Sinus rhythm. 2. This was a technically good study. 3. The left ventricular size is normal. 4. Left ventricular wall thickness is normal. 5. Overall left ventricular systolic function is normal with, an EF between 55 - 60 %. 6. The right ventricle is normal in size. 7. The left atrium is normal in size. 8. The right atrium is normal in size. 9. The aortic valve is trileaflet, and appears structurally normal. No aortic stenosis or regurgitati on. 10. Normal appearing mitral valve. 11. Mild tricuspid regurgitation present. 12. The right ventricular systolic pressure, as measured by Doppler, is {RVSP}. 13. Pulmonic valve appears structurally normal. 14. The aortic root size is normal. 15. The pericardium is normal. DOOR CLOSER MECHANIC: Joanna Ramirez RDCS
--- NOTE | 2017-11-23 18:50 | P.PN ---
Subjective Progress Note Date: 11/23/17 This is a 62-year-old gentleman with history of ischemic heart disease with a previous stent placement was admitted with a fracture. He was taken off the Plavix and underwent surgery without any problems. He denies any chest pain or shortness of breath. He does complain of pain which is surgery related. Patient otherwise seemed to be stable. Objective - Vital Signs Vital signs: Vital Signs Temp 97.0 F L 11/23/17 15:40 Pulse 78 11/23/17 17:25 Resp 16 11/23/17 15:40 BP 127/76 11/23/17 17:25 Pulse Ox 93 L 11/23/17 15:40 Intake & Output 11/22/17 11/23/17 11/23/17 18:59 06:59 18:59 Intake Total 240 1701 Output Total 1225 1175 225 Balance -985 -1175 1476 Intake: IV 1701 Oral 240 Output: Urine 1225 1175 200 Estimated Blood Loss 25 Other: Voiding Method Indwelling Catheter Indwelling Catheter Indwelling Catheter # Voids 1 # Bowel Movements 0 - Exam GENERAL EXAM: Patient is alert and oriented and doesn't appear to be in any acute distress HEENT: Normocephalic. Normal reaction of pupils, equal size, normal range of extraocular motion. No erythema or exudates in the throat. NECK: No masses, no nuchal rigidity. CHEST: No chest wall deformity. LUNGS: Equal air entry with no crackles or wheeze. HEART: S1 and S2 normal with no audible mumurs or gallops. Regular rhythm, femorals equal on both sides.. ABDOMEN: No hepatosplenomegaly, normal bowel sounds, no guarding or rigidity. SKIN: No rashes CENTRAL NERVOUS SYSTEM: No focal deficits. EXTREMITIES: No cyanosis, clubbing or edema. Right foot is for surgical - Labs CBC & Chem 7: 11/23/17 16:52 11/23/17 07:02 Labs: Abnormal Lab Results - Last 24 Hours (Table) 11/22/17 11/23/17 11/23/17 Range/Units 20:55 07:02 07:02 WBC (3.8-10.6) k/uL RBC 3.94 L (4.30-5.90) m/uL Hgb 11.2 L (13.0-17.5) gm/dL Hct 34.1 L (39.0-53.0) % Neutrophils # (1.3-7.7) k/uL BUN 22 H (9-20) mg/dL POC Glucose (mg/dL) 135 H (75-99) mg/dL 11/23/17 11/23/17 11/23/17 Range/Units 07:03 11:11 14:51 WBC (3.8-10.6) k/uL RBC (4.30-5.90) m/uL Hgb (13.0-17.5) gm/dL Hct (39.0-53.0) % Neutrophils # (1.3-7.7) k/uL BUN (9-20) mg/dL POC Glucose (mg/dL) 122 H 115 H 111 H (75-99) mg/dL 11/23/17 11/23/17 Range/Units 16:41 16:52 WBC 12.5 H (3.8-10.6) k/uL RBC 3.89 L (4.30-5.90) m/uL Hgb 11.1 L (13.0-17.5) gm/dL Hct 33.8 L (39.0-53.0) % Neutrophils # 10.1 H (1.3-7.7) k/uL BUN (9-20) mg/dL POC Glucose (mg/dL) 141 H (75-99) mg/dL Microbiology - Last 24 Hours (Table) 11/22/17 15:08 Urine Culture - Preliminary Urine,Catheterized Assessment and Plan (1) Coronary artery disease Current Visit: Yes Status: Acute Code(s): I25.10 - ATHSCL HEART DISEASE OF [place] CORONARY ARTERY W/O ANG PCTRS SNOMED Code(s): 09646351 (2) Closed fracture of tibia and fibula Current Visit: Yes Status: Acute Code(s): S82.209A - UNSP FRACTURE OF SHAFT OF UNSP TIBIA, INIT FOR CLOS FX; S82.409A - UNSP FRACTURE OF SHAFT OF UNSP FIBULA, INIT FOR CLOS FX SNOMED Code(s): 086738228 Plan: Patient is clinically stable from Cardec standpoint. We'll continue current medical therapy
[2017-11-23 19:04] LABS: Hemoglobin A1C 5.9 % (4.0-6.0)
[2017-11-23 20:15] LABS: Glucose,Whole Blood 150 mg/dL (75-99)
[2017-11-23] MEDS: SENNOSIDES-DOCUSATE SODIUM 1 EACH TAB PO SCH (20:26)
[2017-11-23] MEDS: INSULIN DETEMIR 100 UNIT/ML 10 ML VIAL SQ SCH (20:26)
[2017-11-23] MEDS: LORazepam 0.5 MG TAB PO SCH (20:26)
[2017-11-23] MEDS: ceFAZolin IN SWFI 2 GM/20 ML SYRINGE IVP SCH (20:44)
[2017-11-23] MEDS: ATORVASTATIN 20 MG TAB PO SCH (20:44)
[2017-11-24] MEDS: HYDROcodone/APAP 7.5-325MG 1 EACH TAB PO PRN ×6 (00:53→21:59)
[2017-11-24] MEDS: CALCIUM CARBONATE 500 MG CHEWABLE PO PRN ×2 (00:53→21:59)
[2017-11-24] MEDS: ceFAZolin IN SWFI 2 GM/20 ML SYRINGE IVP SCH (04:40)
[2017-11-24] MEDS: SODIUM CHLORIDE 0.9% 1,000 ML IV SCH ×2 (04:44→19:34)
[2017-11-24] MEDS: HYDROmorphone 0.5 MG/0.5 ML SYRINGE IVP PRN ×2 (07:19→11:25)
[2017-11-24 07:25] LABS: Glucose,Whole Blood 146 mg/dL (75-99)
[2017-11-24] MEDS: INSULIN ASPART 100 UNIT/ML 1 ML 10 ML VIAL SQ SCH ×7 (07:52→20:48)
[2017-11-24] MEDS: LISINOPRIL 20 MG TAB PO SCH (09:03)
[2017-11-24] MEDS: PANTOPRAZOLE 40 MG TABLET PO SCH (09:03)
[2017-11-24] MEDS: GABAPENTIN 300 MG CAP PO SCH ×3 (09:03→20:49)
[2017-11-24] MEDS: RIVAROXABAN 10 MG TAB PO SCH (09:03)
[2017-11-24] MEDS: HYDROCHLOROTHIAZIDE 25 MG TAB PO SCH (09:04)
[2017-11-24] MEDS: DULoxetine HCL 60 MG CAPSULE.DR PO SCH (09:04)
[2017-11-24] MEDS: LORATADINE 10 MG TAB PO SCH (09:04)
[2017-11-24] MEDS: amLODIPine 10 MG TAB PO SCH (09:04)
[2017-11-24] MEDS: METOPROLOL SUCCINATE (ER) 50 MG TAB.ER.24H PO SCH (09:05)
[2017-11-24 11:35] LABS: Glucose,Whole Blood 127 mg/dL (75-99)
--- NOTE | 2017-11-24 14:13 | P.PN ---
Subjective Progress Note Date: 11/24/17 The patient and examined complain of right lower extremity pain, otherwise no complaints denies chest pain or shortness of breath Objective - Vital Signs Vital signs: Vital Signs Temp 98.1 F 11/24/17 09:01 Pulse 77 11/24/17 09:01 Resp 16 11/24/17 09:01 BP 116/74 11/24/17 09:01 Pulse Ox 95 11/24/17 09:01 Intake & Output 11/23/17 11/24/17 11/24/17 18:59 06:59 18:59 Intake Total 1701 1040 Output Total 225 1275 1200 Balance 2267 -871 -1200 Intake: IV 1701 Oral 1040 Output: Urine 200 1275 1200 Uretheral (Wallis) 1275 1200 Estimated Blood Loss 25 Other: Voiding Method Indwelling Catheter Indwelling Catheter Indwelling Catheter - Exam Constitutional: No acute distress, conversant, pleasant Eyes: Anicteric sclerae, moist conjunctiva, no lid-lag, PERRLA ENMT: NC/AT,Oropharynx clear, no erythema, exudates Neck:Supple, FROM, no masses, or JVD, No carotid bruits; No thyromegaly Lungs: Clear to auscultation, Clear to percussion, Normal respiratory effort, no accessory muscle use Cardiovascular: Heart regular in rate and rhythm, No murmurs, gallops, or rubs no peripheral edema Abdominal: Soft Nontender, nom distended, no guarding, no rebound or rigidity, Normoactive bowel sounds No hepatomegaly, No splenomegaly, No palpable mass No abdominal wall hernia noted Skin: Normal temperature, tone, texture, turgor, No induration No subcutaneous nodules, No rash, lesions, No ulcers Extremities: Right lower extremity dressed, able to wiggle toes, appears pink indicating no compromise of blood flow Psychiatric: Alert and oriented to person, place and time, Appropriate affect Intact judgement Neuro: Muscles Strength 5/5 in all 4 extremities, Sensation to light touch grossly present throughout, Cranial nerves II-XII grossly intact. No focal sensory deficits - Labs CBC & Chem 7: 11/23/17 16:52 11/23/17 07:02 Labs: Abnormal Lab Results - Last 24 Hours (Table) 11/23/17 11/23/17 11/23/17 Range/Units 14:51 16:41 16:52 WBC 12.5 H (3.8-10.6) k/uL RBC 3.89 L (4.30-5.90) m/uL Hgb 11.1 L (13.0-17.5) gm/dL Hct 33.8 L (39.0-53.0) % Neutrophils # 10.1 H (1.3-7.7) k/uL POC Glucose (mg/dL) 111 H 141 H (75-99) mg/dL 11/23/17 11/24/17 11/24/17 Range/Units 20:08 07:04 11:27 WBC (3.8-10.6) k/uL RBC (4.30-5.90) m/uL Hgb (13.0-17.5) gm/dL Hct (39.0-53.0) % Neutrophils # (1.3-7.7) k/uL POC Glucose (mg/dL) 150 H 146 H 127 H (75-99) mg/dL Microbiology - Last 24 Hours (Table) 11/22/17 15:08 Urine Culture - Final Urine,Catheterized Assessment and Plan Plan: Right leg fracture -Management as per orthopedics postop day # 1 status post Closed reduction and intramedullary rodding of the right distal third tibia fracture -Pain control -DVT prophylaxis per orthopedic surgery -PT/OT eval -Nonweightbearing at this point in time Diabetes mellitus type 2, insulin requiring -Resume home Lantus and NovoLog dosing - hemoglobin A1c 5.9 indicating superb control -Follow blood sugars Hypertension -Resume home medications -Follow blood pressures -Nursing will into her home med list today GERD with recent difficulty swallowing -Changed to modify diet -PT consultation -PPI Dyslipidemia -Not chronically on any medications will not start this point in time Coronary artery disease status post PCI 3 Cardiology following -Continue outpatient follow-up -Continue with JOSE C inhibitor and beta maru Functional debility -Fall precautions -Likely will need rehab on discharge Disposition * We'll plan to remove Wallis catheter tomorrow physical therapy with possible discharge
[2017-11-24 17:18] LABS: Glucose,Whole Blood 174 mg/dL (75-99)
--- NOTE | 2017-11-24 17:46 | P.PN ---
Subjective Progress Note Date: 11/24/17 This is a 62-year-old male who is status post closed reduction and intramedullary rodding of the right distal third tibia fracture. This is postoperative day #1. Patient does report soreness to the right lower leg, but states that his pain is controlled. Patient denies any new symptoms or complaints. Patient denies fever/chills, numbness, weakness, tingling, shortness of breath or chest pain. Objective - Vital Signs Vital signs: Vital Signs Temp 98.1 F 11/24/17 09:01 Pulse 77 11/24/17 09:01 Resp 16 11/24/17 09:01 BP 116/74 11/24/17 09:01 Pulse Ox 95 11/24/17 09:01 Intake & Output 11/23/17 11/24/17 11/24/17 18:59 06:59 18:59 Intake Total 1701 1040 Output Total 225 1275 1200 Balance 1476 -235 -1200 Intake: IV 1701 Oral 1040 Output: Urine 200 1275 1200 Uretheral (Wallis) 1275 1200 Estimated Blood Loss 25 Other: Voiding Method Indwelling Catheter Indwelling Catheter Indwelling Catheter - Exam On exam patient is alert and oriented sitting up in a chair in no acute distress. Splint is intact to the right lower extremity. Patient is able to move the toes of the right foot without pain or difficulty. Capillary refill is normal at <2 seconds. Sensation intact. Dressing is clean, dry and intact. Neurovascular status and circulatory status are intact. - Labs CBC & Chem 7: 11/23/17 16:52 11/23/17 07:02 Labs: Abnormal Lab Results - Last 24 Hours (Table) 11/23/17 11/23/17 11/24/17 Range/Units 16:52 20:08 07:04 WBC 12.5 H (3.8-10.6) k/uL RBC 3.89 L (4.30-5.90) m/uL Hgb 11.1 L (13.0-17.5) gm/dL Hct 33.8 L (39.0-53.0) % Neutrophils # 10.1 H (1.3-7.7) k/uL POC Glucose (mg/dL) 150 H 146 H (75-99) mg/dL 11/24/17 11/24/17 Range/Units 11:27 16:28 WBC (3.8-10.6) k/uL RBC (4.30-5.90) m/uL Hgb (13.0-17.5) gm/dL Hct (39.0-53.0) % Neutrophils # (1.3-7.7) k/uL POC Glucose (mg/dL) 127 H 174 H (75-99) mg/dL Microbiology - Last 24 Hours (Table) 11/22/17 15:08 Urine Culture - Final Urine,Catheterized Assessment and Plan (1) Closed fracture of tibia and fibula Current Visit: Yes Status: Acute Code(s): S82.209A - UNSP FRACTURE OF SHAFT OF UNSP TIBIA, INIT FOR CLOS FX; S82.409A - UNSP FRACTURE OF SHAFT OF UNSP FIBULA, INIT FOR CLOS FX SNOMED Code(s): 618686833 (2) Fall Current Visit: Yes Status: Acute Code(s): W19.XXXA - UNSPECIFIED FALL, INITIAL ENCOUNTER SNOMED Code(s): 4546697 (3) Tibia/fibula fracture Current Visit: Yes Status: Acute Code(s): S82.209A - UNSP FRACTURE OF SHAFT OF UNSP TIBIA, INIT FOR CLOS FX; S82.409A - UNSP FRACTURE OF SHAFT OF UNSP FIBULA, INIT FOR CLOS FX SNOMED Code(s): 809710234 Plan: 1. Continue rest, ice and elevation in short leg splint. Will transition to equalizer boot. 2. Strictly non-weightbearing. 3. Appreciate input from medicine and cardiology. 4. DVT prohylaxis with Xarelto. 5. Likely discharge to rehab tomorrow.
[2017-11-24] MEDS: INSULIN DETEMIR 100 UNIT/ML 10 ML VIAL SQ SCH (20:48)
[2017-11-24] MEDS: LORazepam 0.5 MG TAB PO SCH (20:49)
[2017-11-24] MEDS: ATORVASTATIN 20 MG TAB PO SCH (20:49)
[2017-11-24] MEDS: SENNOSIDES-DOCUSATE SODIUM 1 EACH TAB PO SCH (20:49)
[2017-11-24 21:19] LABS: Glucose,Whole Blood 116 mg/dL (75-99)
[2017-11-25] MEDS: HYDROcodone/APAP 7.5-325MG 1 EACH TAB PO PRN ×4 (01:34→13:29)
[2017-11-25 06:52] LABS: Glucose,Whole Blood 128 mg/dL (75-99)
[2017-11-25] MEDS: INSULIN ASPART 100 UNIT/ML 1 ML 10 ML VIAL SQ SCH ×4 (07:38→12:09)
[2017-11-25] MEDS: PANTOPRAZOLE 40 MG TABLET PO SCH (07:49)
[2017-11-25] MEDS: RIVAROXABAN 10 MG TAB PO SCH (07:50)
[2017-11-25] MEDS: amLODIPine 10 MG TAB PO SCH (07:50)
[2017-11-25] MEDS: LORATADINE 10 MG TAB PO SCH (07:50)
[2017-11-25] MEDS: HYDROCHLOROTHIAZIDE 25 MG TAB PO SCH (07:50)
[2017-11-25] MEDS: METOPROLOL SUCCINATE (ER) 50 MG TAB.ER.24H PO SCH (07:50)
[2017-11-25] MEDS: LISINOPRIL 20 MG TAB PO SCH (07:50)
[2017-11-25] MEDS: GABAPENTIN 300 MG CAP PO SCH ×2 (07:50→12:31)
[2017-11-25] MEDS: DULoxetine HCL 60 MG CAPSULE.DR PO SCH (07:50)
[2017-11-25] MEDS: SODIUM CHLORIDE 0.9% 1,000 ML IV SCH ×2 (07:53→12:31)
[2017-11-25 08:33] VITALS: BP 113/68; PULSE 97; RESP 16; TEMP 99.3
--- NOTE | 2017-11-25 10:01 | P.PN ---
Subjective Progress Note Date: 11/25/17 The patient and examined complain of right lower extremity pain is now tolerable on [place] otherwise no complaints denies chest pain or shortness of breath Objective - Vital Signs Vital signs: Vital Signs Temp 99.3 F 11/25/17 08:33 Pulse 97 11/25/17 08:33 Resp 16 11/25/17 08:33 BP 113/68 11/25/17 08:33 Pulse Ox 95 11/25/17 08:33 Intake & Output 11/24/17 11/25/17 11/25/17 18:59 06:59 18:59 Intake Total 800 Output Total 1700 2200 Balance -1700 -1400 Intake: Intake, IV Titration 800 Amount Sodium Chloride 0.9% 1, 800 000 ml @ 50 mls/hr IV . Q20H [facility] Rx#:[id number] Output: Urine 1700 2200 Uretheral (Wallis) 1200 1200 Other: Voiding Method Indwelling Catheter Indwelling Catheter # Voids 1 - Exam Constitutional: No acute distress, conversant, pleasant Eyes: Anicteric sclerae, moist conjunctiva, no lid-lag, PERRLA ENMT: NC/AT,Oropharynx clear, no erythema, exudates Neck:Supple, FROM, no masses, or JVD, No carotid bruits; No thyromegaly Lungs: Clear to auscultation, Clear to percussion, Normal respiratory effort, no accessory muscle use Cardiovascular: Heart regular in rate and rhythm, No murmurs, gallops, or rubs no peripheral edema Abdominal: Soft Nontender, nom distended, no guarding, no rebound or rigidity, Normoactive bowel sounds No hepatomegaly, No splenomegaly, No palpable mass No abdominal wall hernia noted Skin: Normal temperature, tone, texture, turgor, No induration No subcutaneous nodules, No rash, lesions, No ulcers Extremities: Right lower extremity dressed, able to wiggle toes, appears pink indicating no compromise of blood flow Psychiatric: Alert and oriented to person, place and time, Appropriate affect Intact judgement Neuro: Muscles Strength 5/5 in all 4 extremities, Sensation to light touch grossly present throughout, Cranial nerves II-XII grossly intact. No focal sensory deficits - Labs CBC & Chem 7: 11/23/17 16:52 11/23/17 07:02 Labs: Abnormal Lab Results - Last 24 Hours (Table) 11/24/17 11/24/17 11/24/17 Range/Units 11:27 16:28 20:48 POC Glucose (mg/dL) 127 H 174 H 116 H (75-99) mg/dL 11/25/17 Range/Units 06:47 POC Glucose (mg/dL) 128 H (75-99) mg/dL Assessment and Plan Plan: Right leg fracture -Management as per orthopedics postop day # 2 status post Closed reduction and intramedullary rodding of the right distal third tibia fracture -Pain control -DVT prophylaxis per orthopedic surgery -PT/OT eval -Nonweightbearing at this point in time Diabetes mellitus type 2, insulin requiring -Resume home Lantus and NovoLog dosing - hemoglobin A1c 5.9 indicating superb control -Follow blood sugars Hypertension -Resume home medications -Follow blood pressures -Nursing will into her home med list today GERD with recent difficulty swallowing -Changed to modify diet -PT consultation -PPI Dyslipidemia -Not chronically on any medications will not start this point in time Coronary artery disease status post PCI 3 Cardiology following -Continue outpatient follow-up -Continue with JOSE C inhibitor and beta maru Functional debility -Fall precautions -Likely will need rehab on discharge Disposition * Medically stable ready patient for discharge
--- NOTE | 2017-11-25 11:19 | P.DS ---
Providers Date of admission: 11/22/17 05:33 Expected date of discharge: 11/25/17 Attending physician: Kenneth Osuna Consults: 11/22/17 04:02 Consult Physician Routine Consulting Provider: Shon Oliver Consult Reason/Comments: Medical Managment/surgical clearance Do you want consulting provider notified?: Yes 11/22/17 08:39 Consult Physician Routine Consulting Provider: Bonilla Lundy Consult Reason/Comments: pre operative clearance Do you want consulting provider notified?: Yes Primary care physician: Roberto Bautistaar - Discharge Diagnosis(es) (1) Closed fracture of tibia and fibula Current Visit: Yes Status: Acute (2) Fall Current Visit: Yes Status: Acute (3) Tibia/fibula fracture Current Visit: Yes Status: Acute Hospital Course: This is a 62-year-old male who sustained a closed fracture of the right distal third tibia and proximal fibula after a fall. The patient was admitted for orthopedic evaluation. After discussion and consideration patient and his elect to proceed with closed reduction and intramedullary rodding of the right distal third tibia fracture. The patient is seen preoperatively by Dr. Osuna and medically cleared for surgery by internal medicine and cardiology. Patient is admitted to [facility] on 11/22/2017 and closed reduction and intramedullary rodding of the right distal third tibia fracture is done on . The procedures performed without complication or sequelae. The patient is doing well postoperatively. Labs and vital signs are stable on day of discharge. On day of discharge patient's incision is clean, dry and intact. There is minimal erythema. There is no drainage noted at this time. There is minimal soft tissue swelling to the right lower leg. Neurovascular status to the right lower extremity is intact. Patient is discharged to rehab in good condition. Please see med rec for accurate list of home medications. Patient Condition at Discharge: Serious Plan - Discharge Summary Discharge Rx Participant: No New Discharge Prescriptions: New HYDROcodone/APAP 7.5-325MG [[place] 7.5-325] 1 each PO Q4HR PRN tab PRN Reason: MODERATE Pain Insulin Aspart [NovoLOG (formulary)] 6 unit SQ AC-TID vial Rivaroxaban [Xarelto] 10 mg PO DAILY tab Sennosides [Senokot] 1 tab PO BID #60 tablet Continue Insulin Glargine [Lantus] 20 - 25 unit SQ HS amLODIPine [Norvasc] 10 mg PO DAILY Metoprolol Succinate [Toprol Xl] 50 mg PO DAILY LORazepam [Ativan] 0.5 mg PO HS Hydrochlorothiazide [Hydrodiuril] 25 mg PO DAILY Gabapentin [Neurontin] 600 mg PO HS DULoxetine HCL [Cymbalta] 60 mg PO DAILY Atorvastatin [Lipitor] 20 mg PO HS Aspirin EC [Ecotrin Low Dose] 81 mg PO DAILY metFORMIN HCL [metFORMIN HCL ER] 1,000 mg PO AC-BRKFST Ranitidine HCl [Zantac] 150 mg PO BID Loratadine [Claritin] 10 mg PO DAILY Gabapentin [Neurontin] 300 mg PO BID@0800,1200 Lisinopril [Zestril] 20 mg PO DAILY Clopidogrel [Plavix] 75 mg PO DAILY Insulin Aspart [NovoLOG (formulary)] 6 unit SQ ACHS Discharge Medication List Aspirin EC [Ecotrin Low Dose] 81 mg PO DAILY 11/22/17 [History] Atorvastatin [Lipitor] 20 mg PO HS 11/22/17 [History] Clopidogrel [Plavix] 75 mg PO DAILY 11/22/17 [History] DULoxetine HCL [Cymbalta] 60 mg PO DAILY 11/22/17 [History] Gabapentin [Neurontin] 300 mg PO BID@0800,1200 11/22/17 [History] Gabapentin [Neurontin] 600 mg PO HS 11/22/17 [History] Hydrochlorothiazide [Hydrodiuril] 25 mg PO DAILY 11/22/17 [History] Insulin Aspart [NovoLOG (formulary)] 6 unit SQ ACHS 11/22/17 [History] Insulin Glargine [Lantus] 20 - 25 unit SQ HS 11/22/17 [History] LORazepam [Ativan] 0.5 mg PO HS 11/22/17 [History] Lisinopril [Zestril] 20 mg PO DAILY 11/22/17 [History] Loratadine [Claritin] 10 mg PO DAILY 11/22/17 [History] Metoprolol Succinate [Toprol Xl] 50 mg PO DAILY 11/22/17 [History] Ranitidine HCl [Zantac] 150 mg PO BID 11/22/17 [History] amLODIPine [Norvasc] 10 mg PO DAILY 11/22/17 [History] metFORMIN HCL [metFORMIN HCL ER] 1,000 mg PO AC-BRKFST 11/22/17 [History] HYDROcodone/APAP 7.5-325MG [[place] 7.5-325] 1 each PO Q4HR PRN tab 11/25/17 [Rx] Insulin Aspart [NovoLOG (formulary)] 6 unit SQ AC-TID vial 11/25/17 [Rx] Rivaroxaban [Xarelto] 10 mg PO DAILY tab 11/25/17 [Rx] Sennosides [Senokot] 1 tab PO BID #60 tablet 11/25/17 [Rx] Follow up Appointment(s)/Referral(s): Roberto Kapadia MD [Primary Care Provider] - 1-2 days Kenneth Osuna DO [Doctor of Osteopathic Medicine] - 12/07/17 3:30 pm Activity/Diet/Wound Care/Special Instructions: Non-weight bearing to the right side. Maintain a Consistent Carb diet Strictly nonweightbearing to right lower extremity. Maintain premium equalizer boot at all times. Rest and elevate the right lower extremity. Daily dressing changes. [place] to be removed in 10-14 days. Please follow up with [facility] and call with any questions or concerns. [phone]. Discharge Disposition: TRANSFER TO SNF/ECF
[2017-11-25 11:52] LABS: Glucose,Whole Blood 143 mg/dL (75-99)
== END 2017-11-25 15:30 | DRG 494 ==
LOC: EC 01:04 → 4MS4W 05:33 → EEVIPCON 05:33 → 3SUR 11-23 11:53
PROVIDERS: ADMIT Orthopaedic Surgery; ATTEND Orthopaedic Surgery
PROC: 0QSG36Z Reposition Right Tibia with Intramedullary Internal Fixation Device, Percutaneous Approach (ICD-10-PCS; principal; 2017-11-23 08:15)
DX: S82.301A Unspecified fracture of lower end of right tibia, initial encounter for closed fracture (principal); S82.831A Other fracture of upper and lower end of right fibula, initial encounter for closed fracture; E11.9 Type 2 diabetes mellitus without complications; E78.5 Hyperlipidemia, unspecified; F32.9 Major depressive disorder, single episode, unspecified; F41.9 Anxiety disorder, unspecified; I10 Essential (primary) hypertension; I25.10 Atherosclerotic heart disease of native coronary artery without angina pectoris; K21.9 Gastro-esophageal reflux disease without esophagitis; R13.10 Dysphagia, unspecified; R42 Dizziness and giddiness; F34.1 Dysthymic disorder; Z79.899 Other long term (current) drug therapy; Z79.02 Long term (current) use of antithrombotics/antiplatelets; Z79.4 Long term (current) use of insulin; Z79.82 Long term (current) use of aspirin; Z91.041 Radiographic dye allergy status; Z91.013 Allergy to seafood; Z95.5 Presence of coronary angioplasty implant and graft; Z82.49 Family history of ischemic heart disease and other diseases of the circulatory system; Z83.3 Family history of diabetes mellitus; W01.0XXA Fall on same level from slipping, tripping and stumbling without subsequent striking against object, initial encounter; Y92.9 Unspecified place or not applicable
CPT/HCPCS: 36415; 71045; 80048; 80053; 81001; 83036; 85025; 85027; 85610; 85730; 87086; 93005; 93306; 96374; 99284

== ENCOUNTER → 2018-01-30 | Outpatient (CLI) | payer MEDICARE, OTHER ==
--- NOTE | 2018-01-31 15:51 | PE ---
EXAMINATION TYPE: PET CT fusion skull to thigh DATE OF EXAM: 01/30/2018 COMPARISON: No prior CTs at this location. Prior PET/CT: None HISTORY: Esophageal cancer TECHNIQUE: Following the intravenous administration of 10.519 mCi of F-18 FDG, whole body images are performed from the skull base to the midthigh. Images are reviewed on the computer in the coronal, axial, and sagittal planes. Reconstructed rotating images are created on independent workstation and reviewed on the computer. A localization and attenuation correction CT is performed in conjunction with the PET scan. DLP: 472.07 mGycm SCAN: Initial Blood glucose: 85 mg/dL Average Mediastinum SUV: 1.29 Average Liver SUV: 1.73 FINDINGS: NECK: No abnormal uptake THORAX: There is some focal uptake within the distal esophagus. This has an SUV value of 7.53 compati ble with the patient's reported esophageal cancer. This appears to terminate above the gastroesophage al junction and stomach. ABDOMEN: Suspicious uptake is not identified. There is intense activity through the colon. Some under lying inflammatory change could be considered. This may be within normal uptake for bowel activity. PELVIS: No abnormal uptake. 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 There is some hypodensity within the right lobe thyro id. Consider ultrasound for additional evaluation. No abnormal uptake by PET/CT. Some shotty adenopat hy is mediastinum. The ascending thoracic aorta at the level the main pulmonary artery is 3.5 cm. Christine n pulmonary bifurcation is 2.6 cm. Moderate to advanced coronary artery calcifications present. The a drenal glands appear normal. Loops of bowel without contrast appear unremarkable. Fecal debris is dis loraine. Bilateral fat-containing inguinal hernias are present. COMPARISON: None IMPRESSION: 1. Uptake at the distal esophagus above the diaphragm compatible with patient's esophageal cancer nickolas gnosis. 2. Suspicious uptake elsewhere to suggest metastatic disease is not identified. 3. There is intense activity through the distal ileum and ascending and transverse colon. This may be normal uptake within bowel activity. Intensity could suggest underlying inflammatory changes. Consid er follow-up. 3. Hypodensity within the full appearing right lobe thyroid. Ultrasound is recommended for additional evaluation.
== END | disposition home or self-care (01) ==
LOC: RADPETMAIN 12:48
PROVIDERS: ATTEND Internal Medicine Gastroenterology
DX: C15.5 Malignant neoplasm of lower third of esophagus (principal)
CPT/HCPCS: 78815; A9552

== ENCOUNTER 2018-03-29 12:36 | Emergency (ER) | payer MEDICARE, OTHER ==
[2018-03-29] MEDS ORDERED: SODIUM CHLORIDE 0.9% 1,000 ML IV STA ×2 (13:08)
--- NOTE | 2018-03-29 13:47 | ED ---
Nausea/Vomiting/Diarrhea HPI - General Chief complaint: Nausea/Vomiting/Diarrhea Stated complaint: Chest Cold, CA PT Time Seen by Provider: 03/29/18 13:07 Source: patient, RN notes reviewed, old records reviewed Mode of arrival: ambulatory Limitations: no limitations - History of Present Illness Initial comments: This is a 62-year-old male the ER for evaluation patient presents for nausea vomiting weakness lethargy shortness of breath cough and congestion. Fevers and chills. No new change in medications. Patient is going to chemotherapy. Patient is going to chemotherapy recently about 2 weeks MD complaint: nausea, vomiting, diarrhea -: days(s) Description of Vomiting: watery Description of Diarrhea: water Associated Abdominal Pain: Yes Location: diffuse Radiation: none Severity scale (1-10): 3 Quality: aching Consistency: constant Improves with: none Worsens with: none Associated Symptoms: denies other symptoms, myalgias - Related Data Home Medications Medication Instructions Recorded Confirmed Aspirin EC [Ecotrin Low Dose] 81 mg PO DAILY 11/22/17 03/29/18 Atorvastatin [Lipitor] 20 mg PO HS 11/22/17 03/29/18 Clopidogrel [Plavix] 75 mg PO DAILY 11/22/17 03/29/18 DULoxetine HCL [Cymbalta] 60 mg PO DAILY 11/22/17 03/29/18 Gabapentin [Neurontin] 300 mg PO TID 11/22/17 03/29/18 Hydrochlorothiazide [Hydrodiuril] 25 mg PO DAILY 11/22/17 03/29/18 Insulin Aspart [NovoLOG See Protocol [facility] 11/22/17 03/29/18 (formulary)] LORazepam [Ativan] 0.5 mg PO DAILY PRN 11/22/17 03/29/18 Lisinopril [Zestril] 20 mg PO DAILY 11/22/17 03/29/18 Loratadine [Claritin] 10 mg PO DAILY 11/22/17 03/29/18 Metoprolol Succinate [Toprol Xl] 50 mg PO DAILY 11/22/17 03/29/18 Ranitidine HCl [Zantac] 150 mg PO BID 11/22/17 03/29/18 metFORMIN HCL [metFORMIN HCL ER] 1,000 mg PO AC-[id number] 11/22/17 03/29/18 Insulin Aspart [NovoLOG 6 unit SQ ACHS 03/29/18 03/29/18 (formulary)] Insulin Glargine,Hum.rec.anlog 20 unit SQ HS 03/29/18 03/29/18 [Basaglar Kwikpen U-100] Ondansetron [Zofran] 4 mg PO Q4H PRN 03/29/18 03/29/18 Zolpidem [Ambien] 10 mg PO HS 03/29/18 03/29/18 Allergies Allergy/AdvReac Type Severity Reaction Status Date / Time shellfish derived [Shellfish] Allergy Nausea & Verified 03/29/18 13:21 Vomiting Review of Systems ROS Statement: Those systems with pertinent positive or pertinent negative responses have been documented in the HPI. ROS Other: All systems not noted in ROS Statement are negative. Past Medical History Past Medical History: Diabetes Mellitus, Hyperlipidemia, Hypertension Additional Past Medical History / Comment(s): Depression, history of alcoholism , hx of brain bleed, esophageal cancer History of Any Multi-Drug Resistant Organisms: None Reported Past Surgical History: No Surgical Hx Reported Additional Past Surgical History / Comment(s): Fracture repairs after a fall, with long-term care; hydrocele surgery Past Anesthesia/Blood Transfusion Reactions: No Reported Reaction Past Psychological History: Anxiety, Depression Smoking Status: Never smoker Past Alcohol Use History: None Reported Past Drug Use History: Marijuana - Past Family History Father Family Medical History: Congestive Heart Failure (CHF), Diabetes Mellitus Mother Family Medical History: Congestive Heart Failure (CHF) Sister(s) Family Medical History: Diabetes Mellitus General Exam Limitations: no limitations General appearance: alert, in no apparent distress Head exam: Present: atraumatic, normocephalic, normal inspection Eye exam: Present: normal appearance, PERRL, EOMI. Absent: scleral icterus, conjunctival injection, periorbital swelling ENT exam: Present: normal exam, mucous membranes moist Neck exam: Present: normal inspection. Absent: tenderness, meningismus, lymphadenopathy Respiratory exam: Present: normal lung sounds bilaterally. Absent: respiratory distress, wheezes, rales, rhonchi, stridor Cardiovascular Exam: Present: regular rate, normal rhythm, normal heart sounds. Absent: systolic murmur, diastolic murmur, rubs, gallop, clicks GI/Abdominal exam: Present: soft, normal bowel sounds. Absent: distended, tenderness, guarding, rebound, rigid Extremities exam: Present: normal inspection, full ROM, normal capillary refill. Absent: tenderness, pedal edema, joint swelling, calf tenderness Back exam: Present: normal inspection Neurological exam: Present: alert, oriented X3, CN II-XII intact Psychiatric exam: Present: normal affect, normal mood Skin exam: Present: warm, dry, intact, normal color. Absent: rash Course Vital Signs 03/29/18 12:44 Temperature 98.5 F Pulse Rate 92 Respiratory 20 Rate Blood Pressure 105/72 O2 Sat by Pulse 96 Oximetry - Reevaluation(s) Reevaluation #1: 03/29/18 16:33 Medical record is reviewed Reevaluation #2: 03/29/18 16:33 she feels better with IV hydration Medical Decision Making - Medical Decision Making 62 male the ER for evaluation nausea vomiting diarrhea weakness. Patient likely medication reaction versus viral syndrome. Labwork chest x-ray are normal. Patient can be discharged home - Lab Data Result diagrams: 03/29/18 13:45 03/29/18 13:45 Lab Results 03/29/18 03/29/18 03/29/18 Range/Units 13:45 13:45 13:45 WBC 3.0 L (3.8-10.6) k/uL RBC 3.86 L (4.30-5.90) m/uL Hgb 10.0 L (13.0-17.5) gm/dL Hct 30.3 L (39.0-53.0) % MCV 78.6 L (80.0-100.0) fL MCH 26.0 (25.0-35.0) pg MCHC 33.0 (31.0-37.0) g/dL RDW 20.8 H (11.5-15.5) % Plt Count 151 (150-450) k/uL Neutrophils % 84 % Lymphocytes % 9 % Monocytes % 3 % Eosinophils % 2 % Basophils % 0 % Neutrophils # 2.5 (1.3-7.7) k/uL Lymphocytes # 0.3 L (1.0-4.8) k/uL Monocytes # 0.1 (0-1.0) k/uL Eosinophils # 0.1 (0-0.7) k/uL Basophils # 0.0 (0-0.2) k/uL Hypochromasia Slight Anisocytosis Moderate Microcytosis Slight PT (9.0-12.0) sec INR (<1.2) APTT (22.0-30.0) sec Sodium 135 L (137-145) mmol/L Potassium 3.8 (3.5-5.1) mmol/L Chloride 100 (98-107) mmol/L Carbon Dioxide 25 (22-30) mmol/L Anion Gap 10 mmol/L BUN 33 H (9-20) mg/dL Creatinine 1.13 (0.66-1.25) mg/dL Est GFR (CKD-EPI)AfAm 79 (>60 ml/min/1.73 sqM) Est GFR (CKD-EPI)NonAf 69 (>60 ml/min/1.73 sqM) Glucose 170 H (74-99) mg/dL Plasma Lactic Acid Davi (0.7-2.0) mmol/L Calcium 9.1 (8.4-10.2) mg/dL Phosphorus 3.7 (2.5-4.5) mg/dL Magnesium 1.6 (1.6-2.3) mg/dL Total Bilirubin 0.8 (0.2-1.3) mg/dL AST 28 (17-59) U/L ALT 32 (21-72) U/L Alkaline Phosphatase 52 (38-126) U/L Total Creatine Kinase 107 (55-170) U/L CK-MB (CK-2) 1.4 (0.0-2.4) ng/mL CK-MB (CK-2) Rel Index 1.3 Troponin I <0.012 (0.000-0.034) ng/mL Total Protein 6.7 (6.3-8.2) g/dL Albumin 4.0 (3.5-5.0) g/dL Urine Color Urine Appearance (Clear) Urine pH (5.0-8.0) Ur Specific [place] (1.001-1.035) Urine Protein (Negative) Urine Glucose (UA) (Negative) Urine Ketones (Negative) Urine Blood (Negative) Urine Nitrite (Negative) Urine Bilirubin (Negative) Urine Urobilinogen (<2.0) mg/dL Ur Leukocyte Esterase (Negative) 03/29/18 03/29/18 03/29/18 Range/Units 13:45 13:45 15:20 WBC (3.8-10.6) k/uL RBC (4.30-5.90) m/uL Hgb (13.0-17.5) gm/dL Hct (39.0-53.0) % MCV (80.0-100.0) fL MCH (25.0-35.0) pg MCHC (31.0-37.0) g/dL RDW (11.5-15.5) % Plt Count (150-450) k/uL Neutrophils % % Lymphocytes % % Monocytes % % Eosinophils % % Basophils % % Neutrophils # (1.3-7.7) k/uL Lymphocytes # (1.0-4.8) k/uL Monocytes # (0-1.0) k/uL Eosinophils # (0-0.7) k/uL Basophils # (0-0.2) k/uL Hypochromasia Anisocytosis Microcytosis PT 11.7 (9.0-12.0) sec INR 1.2 H (<1.2) APTT 23.0 (22.0-30.0) sec Sodium (137-145) mmol/L Potassium (3.5-5.1) mmol/L Chloride (98-107) mmol/L Carbon Dioxide (22-30) mmol/L Anion Gap mmol/L BUN (9-20) mg/dL Creatinine (0.66-1.25) mg/dL Est GFR (CKD-EPI)AfAm (>60 ml/min/1.73 sqM) Est GFR (CKD-EPI)NonAf (>60 ml/min/1.73 sqM) Glucose (74-99) mg/dL Plasma Lactic Acid Davi 1.2 (0.7-2.0) mmol/L Calcium (8.4-10.2) mg/dL Phosphorus (2.5-4.5) mg/dL Magnesium (1.6-2.3) mg/dL Total Bilirubin (0.2-1.3) mg/dL AST (17-59) U/L ALT (21-72) U/L Alkaline Phosphatase (38-126) U/L Total Creatine Kinase (55-170) U/L CK-MB (CK-2) (0.0-2.4) ng/mL CK-MB (CK-2) Rel Index Troponin I (0.000-0.034) ng/mL Total Protein (6.3-8.2) g/dL Albumin (3.5-5.0) g/dL Urine Color Yellow Urine Appearance Clear (Clear) Urine pH 5.5 (5.0-8.0) Ur Specific [place] 1.016 (1.001-1.035) Urine Protein Trace H (Negative) Urine Glucose (UA) Negative (Negative) Urine Ketones Negative (Negative) Urine Blood Negative (Negative) Urine Nitrite Negative (Negative) Urine Bilirubin Negative (Negative) Urine Urobilinogen 2.0 (<2.0) mg/dL Ur Leukocyte Esterase Negative (Negative) - EKG Data -: EKG Interpreted by Me (EKG shows normal sinus rhythm rate of 85, NC 134, QRS 100, QTc 466) - Radiology Data Radiology results: report reviewed (Chest x-rays negative for acute disease), image reviewed Disposition Clinical Impression: Viral syndrome Disposition: HOME SELF-CARE Instructions: Viral Syndrome (ED) Is patient prescribed a controlled substance at d/c from ED?: No Referrals: Roberto Kapadia MD [Primary Care Provider] - 1-2 days
--- NOTE | 2018-03-29 14:15 | XR ---
EXAMINATION TYPE: XR chest 2V DATE OF EXAM: 03/29/2018 COMPARISON: Prior chest 11/23/2017 HISTORY: Weakness TECHNIQUE: Frontal and lateral views of the chest are obtained. FINDINGS: There is no focal air space opacity, pleural effusion, or pneumothorax seen. The cardiac silhouette size is within normal limits. The aorta is dense. Old right-sided rib fractures are suspe cted eighth and ninth ribs, correlate The osseous structures are intact. IMPRESSION: No acute cardiopulmonary process.
[2018-03-29 14:17] LABS: Calcium 9.1 mg/dL (8.4-10.2); Magnesium 1.6 mg/dL (1.6-2.3); Phosphorus 3.7 mg/dL (2.5-4.5); Potassium 3.8 mmol/L (3.5-5.1); Total Bilirubin 0.8 mg/dL (0.2-1.3); Total Protein 6.7 g/dL (6.3-8.2)
[2018-03-29 14:21] LABS: Anisocytosis Moderate; Basophils % (A) 0 %; Eosinophils # (A) 0.1 k/uL (0-0.7); Eosinophils % (A) 2 %; HCT 30.3 % (39.0-53.0); Hypochromasia Slight; Lymphocytes # (A) 0.3 k/uL (1.0-4.8); Lymphocytes % (A) 9 %; MCV 78.6 fL (80.0-100.0); Mean Platelet Volume 8.2; Microcytosis Slight; Monocytes # (A) 0.1 k/uL (0-1.0); Monocytes % (A) 3 %; Neutrophils # (A) 2.5 k/uL (1.3-7.7); Neutrophils % (A) 84 %; Platelet Count 151 k/uL (150-450); RBC 3.86 m/uL (4.30-5.90); RDW 20.8 % (11.5-15.5)
[2018-03-29 14:33] LABS: Creatine Kinase 107 U/L (55-170)
[2018-03-29 14:34] LABS: INR 1.2 (<1.2); Prothrombin Time 11.7 sec (9.0-12.0)
[2018-03-29 14:44] LABS: Creatine Kinase MB 1.4 ng/mL (0.0-2.4); Troponin I <0.012 ng/mL (0.000-0.034)
[2018-03-29 15:36] LABS: Appearance,Urine Clear (Clear); Bilirubin,Urine Negative (Negative); Blood,Urine Negative (Negative); Color,Urine Yellow; Glucose,Urine (UA) Negative (Negative); Ketones,Urine Negative (Negative); Leukocyte Esterase,Urine Negative (Negative); Nitrite,Urine Negative (Negative); PH, Urine 5.5 (5.0-8.0); Protein,Urine Trace (Negative); Specific Gravity,Urine 1.016 (1.001-1.035)
[2018-03-29] MEDS ORDERED: IPRATROPIUM-ALBUTEROL 3 ML NEB INHALATION STA (16:23)
[2018-03-29 16:49] VITALS: RESP 18
[2018-03-29 17:20] VITALS: BP 126/74; PULSE 89; TEMP 97.7
== END 2018-03-29 17:19 | disposition home or self-care (01) ==
LOC: EC 12:36
DX: B34.9 Viral infection, unspecified (principal); E11.9 Type 2 diabetes mellitus without complications; E78.5 Hyperlipidemia, unspecified; I10 Essential (primary) hypertension; C15.9 Malignant neoplasm of esophagus, unspecified; F32.9 Major depressive disorder, single episode, unspecified; F41.9 Anxiety disorder, unspecified; Z79.01 Long term (current) use of anticoagulants; Z79.4 Long term (current) use of insulin; Z79.82 Long term (current) use of aspirin; Z79.899 Other long term (current) drug therapy; Z91.013 Allergy to seafood
CPT/HCPCS: 36415; 71046; 80053; 81003; 82550; 82553; 83605; 83735; 84100; 84484; 85025; 85610; 85730; 87040; 87086; 93005; 94640; 96360; 96361; 99284

== ENCOUNTER → 2018-04-24 | Outpatient (CLI) | payer MEDICARE, OTHER ==
--- NOTE | 2018-04-26 17:26 | PE ---
Nuclear medicine PET/CT HISTORY: Esophageal Carcinoma, subsequent Patient received 12.8 mCi F-18 FDG intravenously in delayed scanning was performed from the skull bas e to the mid thighs. Localization and attenuation correction CT scan was performed. Correlation to prior nuclear medicine PET/CT 01/30/2018 Neck And chest: No evident lung mass. No suspicious hypermetabolic uptake. No mediastinal, axillary, or hilar adenopathy. There are dense coronary artery calcifications present. Abdomen pelvis: Small hiatal hernia is present, there is thickening of the distal esophagus, mild hyp ermetabolic uptake present along the stomach extending to the GE junction, SUV is approximately 3.2 w hich is decreased from prior exam when it measured 8.7, gastric wall shows some thickening which is i ndeterminate but may be due to post treatment changes. No retroperitoneal adenopathy. No evident live r mass. There is anatomic well-formed left kidney. Left inguinal hernia contains fat. Bowel activity felt likely to be physiologic. Retroaortic left renal vein noted. Osseous structures: Uptake along the anterior costochondral junction at the second and third ribs on the left may be due to costochondritis or possibly fractures with healing, correlate for appropriate history. IMPRESSION: Findings within the esophagus as described. There is marked improvement in the abnormal u ptake seen on previous exam at the level of the distal esophagus Correlate for trauma to the anterior left RIBS.
== END | disposition home or self-care (01) ==
LOC: RADPETMAIN 11:44
PROVIDERS: ATTEND Radiology Radiation Oncology
DX: C15.5 Malignant neoplasm of lower third of esophagus (principal)
CPT/HCPCS: 78815; A9552

== ENCOUNTER → 2018-04-28 | Outpatient (CLI) | payer MEDICARE, OTHER ==
--- NOTE | 2018-04-28 16:30 | XR ---
Sternum HISTORY: Abnormal PET/CT 2 views of the chest are correlated to nuclear medicine PET/CT 04/24/2018 Sternum shows normal bone mineralization. There is no evident fracture. No dislocation. IMPRESSION: Normal sternum.
--- NOTE | 2018-04-28 16:32 | XR ---
Left RIBS HISTORY: Abnormal PET/CT 4 views of the left ribs correlated to PET CT dated 04/24/2018 No evident fracture. Bone mineralization is normal. No pneumothorax or pleural effusion. IMPRESSION: No abnormalities evident. CT scan or bone scan may be of increased sensitivity.
== END | disposition home or self-care (01) ==
LOC: RADXRMAIN 15:28
PROVIDERS: ATTEND Radiology Radiation Oncology
DX: C15.5 Malignant neoplasm of lower third of esophagus (principal)
CPT/HCPCS: 71120

== ENCOUNTER → 2018-05-20 | Outpatient (CLI) | payer MEDICARE, OTHER ==
--- NOTE | 2018-05-20 21:59 | MR ---
EXAMINATION TYPE: MR brain wo/w con DATE OF EXAM: 05/20/2018 COMPARISON: NONE HISTORY: History of esophageal cancer with headaches, history of prior stroke 2016 TECHNIQUE: Multiplanar, multisequence images of the brain and brainstem is performed without and with IV contras t, utilizing 10 mL intravenous Gadavist . FINDINGS: Diffusion weighted images demonstrate no evidence of a recent infarct or other diffusion ab normality. There is no worrisome extra-axial fluid collection. There is ventricular and sulcal promi nence consistent with diffuse cerebral atrophy there are multifocal areas of T2 hyperintensity seen t hroughout the white matter bilaterally. Approximately 40-50 scattered lesions are seen. For reference there is elongated inferior left frontal 9 mm lesion axial Image 14. No enhancing lesions are seen. Midline structures demonstrate normal morphology. The craniocervical junction appears within normal limits. Post contrast images demonstrate no abnormal enhancement. Incidental dominant left vertebral artery, both vertebral arteries are somewhat small in caliber. The dural venous sinuses appear paten t. There is 1.7 cm mucous retention cyst or polyp in the posterior inferior left maxillary sinus othe rwise paranasal sinuses are clear. Mild mucosal thickening anterior inferior aspect is noted The glob es are intact bilaterally. IMPRESSION: 1. No evidence of a recent infarct. 2. Background mild to moderate diffuse cerebral atrophy and moderate chronic small vessel ischemic ch irasema. No suspicious enhancement noted.
== END | disposition home or self-care (01) ==
LOC: RADMRIMAIN 15:06
PROVIDERS: ATTEND Internal Medicine Hematology & Oncology
DX: C15.9 Malignant neoplasm of esophagus, unspecified (principal); R51 Headache; G31.9 Degenerative disease of nervous system, unspecified; I67.82 Cerebral ischemia
CPT/HCPCS: 70553; A9585

== ENCOUNTER → 2018-07-17 | Outpatient (CLI) | payer MEDICARE, OTHER ==
--- NOTE | 2018-07-20 12:47 | PE ---
Nuclear medicine PET/CT HISTORY: Esophageal carcinoma, subsequent Patient received 12 mCi F-18 FDG intravenously in delayed scanning was performed from the skull base to the mid thighs. Localization and attenuation correction CT scan was performed. Correlation to prior nuclear medicine PET/CT 04/24/2018 Neck and chest: There is no evident mediastinal, axillary, or hilar adenopathy. No cervical adenopath y, supraclavicular regions are stable. Atheromatous change present at the carotid artery bifurcations . Probable mucus retention cyst noted in the left maxillary sinus. No evident lung mass, no endobronc hial lesion, pleural or pericardial effusion. Heart is enlarged. There are coronary artery calcificat ions. Abdomen pelvis: Soft tissue mass at the level of the anterior aspect of the head of the pancreas show s associated hypermetabolic uptake, SUV is 9.9, an interval finding. Additionally, there is a soft ti ssue mass anterior to the inferior vena cava which is increased in size and now measures 3.8 cm x 1.7 cm and shows associated hypermetabolic uptake, SUV 11.3. Multiple liver masses have decreased in siz e in the interval. The largest in the liver, axial image 138 measures at least 5 cm in size and shows peripheral hypermetabolic uptake, SUV 6.2. There may be central necrosis. Additional mass inferiorly in the right lobe measures 6 cm, SUV 6.3 posteriorly. There are at least 6 masses. No evident mass at the gastroesophageal junction. Stomach activity could be physiologic. Pelvic kidney is again noted incidentally. Uptake associated with the colon may be physiologic. No pe lvic adenopathy. There is a small amount of free fluid present within the pelvis. Osseous structures are remarkable for improved uptake in the anterior left RIBS suggesting healing of previous fractures. No significant interval changes. IMPRESSION: Progression of metastatic disease.
== END | disposition home or self-care (01) ==
LOC: RADPETMAIN 10:31
PROVIDERS: ATTEND Radiology Radiation Oncology
DX: C15.5 Malignant neoplasm of lower third of esophagus (principal); C79.9 Secondary malignant neoplasm of unspecified site
CPT/HCPCS: 78815; A9552